=== PATIENT | male | born 1980 | race Caucasian/White ===

== ENCOUNTER 2021-03-26 15:49 | Outpatient (REF) | payer BC, SELFPAY ==
[2021-03-26 21:00] LABS: ALT 43 U/L (16-63); AST 24 U/L (15-37); Albumin 4.4 g/dL (3.4-5.0); Alkaline Phosphatase 70 U/L (46-116); Anion Gap 12.3 mmol/L (3-11); BUN 16 mg/dL (7-18); Bilirubin, Total 0.4 mg/dL (0.2-1.0); CO2 25.7 mmol/L (21.0-32.0); CREATININE 1.3 mg/dL (0.70-1.30); Calcium 9.6 mg/dL (8.5-10.1); Calculated LDL 178 mg/dL (<100); Chloride 100 mmol/L (98-107); Cholesterol 273 mg/dL (<200); Glucose 104 mg/dL (74-106); HDL Cholesterol 56 mg/dL (40-60); Potassium 3.9 mmol/L (3.5-5.1); Sodium 138 mmol/L (136-145); Total Protein 8.3 g/dL (6.4-8.2); Triglyceride 195 mg/dL (<150)
== END 2021-03-26 15:50 | disposition home or self-care (01) ==
LOC: LBN 15:49
PROVIDERS: Visit Provider Nurse Practitioner Family
DX: I10 Essential (primary) hypertension (principal); E78.5 Hyperlipidemia, unspecified; Z51.81 Encounter for therapeutic drug level monitoring
CPT/HCPCS: 80053; 80061

== ENCOUNTER 2023-01-08 09:03 | Observation (INO) | payer BC, SELFPAY ==
[2023-01-08] VITALS (23 sets, daily range): BP systolic 96–155; BP diastolic 60–94; PULSE 54–82; RESP 18–22; TEMP 35.8–37.8; O2SAT 95–100
--- NOTE | 2023-01-08 09:07 | ED.GENADUL_ITS ---
Discharge Plan Disposition Patient Disposition: Admit to [facility] Discharge Details Clinical Impression: Acute exacerbation of chronic low back pain Primary Care Provider: None,None ED Provider: Grey Torres Home Meds and New Rx's Prescriptions: New diazepam 5 mg tablet 5 mg PO QD-TID PRNQty: 7 0RF Continued metoprolol succinate 50 mg capsule,sprinkle,ER 24hr 50 mg PO DAILY atorvastatin 20 mg tablet 20 mg PO DAILY amlodipine 10 mg tablet 10 mg PO DAILY HPI General Date/Time Provider Initiated Documentation: 01/08/23 09:07 . HPI Narrative: MDM This is an uncomfortable but overall well appearing normothermic and not tachycardic 42-year-old male with acute on chronic back pain for which patient will receive diazepam given prehospital acetaminophen and ibuprofen. Patient has no saddle anesthesia to suggest cauda equina syndrome. He is not an IV drug user and denies any fevers and low suspicion for spinal epidural abscess is low. He has not lost control of his bowels nor bladder making cauda equina less likely. No recent spinal surgeries to suggest increased risk for spinal epidural hematoma. Furthermore patient is not anticoagulated. No history of malignancy so doubt pathological fracture. No trauma so patient is low risk for fracture. No rash to suggest zoster. No abdominal pain to suggest AAA. No pain out of proportion to suggest necrotizing soft tissue infection. Soft nontender abdomen so not concern for appendicitis or diverticulitis. No chest pain to suggest ACS. Bilateral feet warm and well-perfused so I am not concerned for critical limb ischemia. Patient has intact patellar reflexes and no lower extremity clonus I do not feel that he requires an emergent MRI as my suspicion for cord compression is exceedingly low. We will attempt treatment with 5 mg of diazepam intramuscularly and reassess. I have also ordered consultation from physical therapy. Patient reports no relief with Lidoderm patches so we will defer these at this point time. 10:51 AM Patient required 2 rounds of diazepam at 5 mg IV and then 5 mg IM. He also received 50 mg of IV ketorolac. His pain was improved. I have asked health equal opportunity officer Sheyla to have the patient seen next week by his primary care provider as he is asking for a referral to the spine clinic at [facility]. I have also ordered him a referral for physical therapy. 11:15 AM Patient feeling markedly improved. He reported diazepam worked better at times cyclobenzaprine so we will send him with a short course of diazepam. I went over return indications with the patient and told her explicitly that he should return if he lost control of his bowels or bladder or develop any saddle anesthesia or developed any fevers. Otherwise advised scheduled acetaminophen and ibuprofen. We will follow-up with the primary care provider next week. He did not want to work with physical therapy. 11:41 AM Patient was going to be discharged but he difficulty moving at the end of the bed. Will order 5 of additional diazepam IV. He reported that his pain had been down to a 5 out of 10. Now it is back up at a 7 out of 10. 1:07 PM Patient was feeling slightly improved wanted to try to be discharged. He requested crutches which I ordered. 1:38 PM Patient attempted to set up a second time. He was markedly uncomfortable. He reported worsening spasm. We will redose with an additional 50 mg of intravenous ketorolac and attempt treatment with 75 mcg of fentanyl. Given patient's refractory pain will reach out to hospitalist with request for hospitalization to best optimize the patient's pain management and hopefully have him work with physical therapy in the morning tomorrow. 2:25 PM I spoke with Dr. Lopes from the hospitalist service who agreed graciously to accept the patient for hospitalization, observation status. I ordered basic metabolic panel and a CBC. Met with the patient and he was feeling markedly improved. He agreed that it seemed most prudent for him to stay overnight to ensure that his multimodal pain regime was optimized and that he was not discharged prematurely given his relatively refractory symptoms in the emergency department for the past nearly 6 hours. His vitals remained reassuring in the ED. Chronic conditions affecting the care of the patient: Low back pain History obtained from an outside historian: Patient's External record review: No [facility] EMR records Medications: Diazepam Social determinants of health affecting disposition: N/A Management discussed with: N/A Treatment/interventions considered: Physical therapy but deferred based on patient preference Response to therapies provided: Improved pain following ketorolac and diazepam. HPI Patient reports that he has a history of an L5/S1 herniated disc and that this morning he bent down to put on his sock and felt a severe pain in his lower back. He has previously been dealing with similar symptoms over the past several years. 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 His symptoms often last 2 to 4 weeks. He attempted treatment at home with ibuprofen and in the past has used cyclobenzaprine. He also received 1 g of IV acetaminophen with paramedics. He denies any fevers any saddle anesthesia. He did have an isolated episode of emesis this morning. He has had no recent surgeries to his back. He denies chest and abdominal pain. He has no history of cancer and denies history of malignancy. He said no saddle anesthesia. He has had no pain radiating down his legs which is typical of his back pain. He drinks 1-2 beers per day denies history of withdrawal. No history of IV drug use nor tobacco use. No loss of bowel or bladder control. No falls. Exam General: Well-appearing in moderate distress speaking in complete sentences. Lying on back with legs propped up in stretcher. Head: Normocephalic, atraumatic. Eye: Extraocular eye movements intact. No conjunctival injection. No scleral icterus. Ear, nose, mouth, throat: Grossly normal inspection. Normal voice, handling secretions normally. Neck: Trachea midline. Cardiovascular: Well-perfused distal extremities. Respiratory: Nonlabored respiration. Clear lungs bilaterally Gastrointestinal: Nondistended abdomen. Soft nontender. Back: No rash to back. Mid line lumbar spinal tenderness with mild left-sided paraspinal muscle tenderness in the lumbar region. No step-offs. No deformities. No rash to back. Musculoskeletal: No edema. Moving all 4 extremities spontaneously. 2+ patellar reflexes. No lower extremity clonus. Bilateral feet warm well perfused with 5 out of 5 strength in dorsi and plantarflexion bilaterally. Skin: Normal for age and race, grossly normal temperature and turgor. No acute rash. Neurologic: Alert and appropriate, no apparent acute deficits. Psychiatric: Mood and manner are appropriate. Grooming and personal hygiene are appropriate. Related Data Home Medications Medication Instructions Recorded Confirmed amlodipine 10 mg tablet 10 mg PO DAILY 01/08/23 01/08/23 atorvastatin 20 mg tablet 20 mg PO DAILY 01/08/23 01/08/23 diazepam 5 mg tablet 5 mg PO QD-TID PRN #7 tabs 01/08/23 metoprolol succinate 50 mg capsule 50 mg PO DAILY 01/08/23 01/08/23 sprinkle, ext. release 24 hr Previous Rx's Medication Instructions Recorded diazepam 5 mg tablet 5 mg PO QD-TID PRN #7 tabs 01/08/23 Allergies Allergy/AdvReac Type Severity Reaction Status Date / Time No Known Allergies Allergy Unverified 01/08/23 09:01 General Stated Complaint: Nk/Back Pain ANG: 3 PFSH All Active Problems (Updated 01/08/23 @ 09:32 by Grey Torres MD) Acute exacerbation of chronic low back pain (Acute) Social History Smoking/Tobacco Use Status: Never Smoking risk assessment performed?: Yes Alcohol Intake: current Alcohol Intake frequency: a few times a month Alcohol type: beer Drug use: Never Substance use type: does not use Do you feel safe at home: Yes Do you feel safe in your relationship?: Yes Course Vital Signs Vital signs: Vital Signs Temperature 37.8 C H 01/08/23 08:57 Pulse 82 01/08/23 08:57 Respiratory Rate 22 01/08/23 08:57 Blood Pressure 114/72 01/08/23 08:57 Pulse Oximetry 100 01/08/23 08:57 Temperature 36.8 C 01/08/23 09:05 Temperature Source Oral 01/08/23 09:05 Pulse 82 01/08/23 08:57 Respiratory Rate 22 01/08/23 08:57 Blood Pressure 114/72 01/08/23 08:57 Pulse Oximetry 100 01/08/23 08:57 Oxygen Delivery Method Room Air 01/08/23 08:57 Oxygen Flow Rate 0 01/08/23 08:57 Pain Level 10 01/08/23 08:57
[2023-01-08] MEDS: diazePAM 10 MG/2 ML SYR 5 MG IM ×3 (09:31→23:37)
[2023-01-08] MEDS: Ketorolac 15 MG/ML VIAL IVP ×3 (10:34→20:12)
--- NOTE | 2023-01-08 10:55 | NUR.NOTE ---
Referral given to Care Managers to help Pt establish a Primary Care Provider to follow up with Low Back Pain.
[2023-01-08] MEDS: diazePAM 10 MG/2 ML SYR 5 MG IVP ×2 (11:51→12:39)
[2023-01-08] MEDS: fentaNYL 100 MCG/2 ML VIAL 75 MCG IM (13:47)
[2023-01-08 14:47] LABS: Source Nasal/Nares
[2023-01-08 14:50] LABS: Abs Immature Grans 0.03 10^3/uL (0.0-0.06); Absolute Basophil Count 0.04 10^3/uL (0.0-0.2); Absolute Eosinophil Count 0.19 10^3/uL (0.0-0.7); Absolute Lymphocyte Count 1.11 10^3/uL (1.2-3.4); Absolute Monocyte Count 0.53 10^3/uL (0.1-0.8); Absolute Neutrophil Count 4.41 10^3/uL (1.2-6.7); Basophils % 0.6; HCT 42.7 % (40.0-50.0); HGB 14.8 g/dL (13.5-17.5); Immature Grans % 0.5; Lymphocytes % 17.6; MCH 30.5 pg (27.0-33.0); MCHC 34.7 % (32.0-36.0); MCV 88 fL (80-95); MPV 9.1 fL (8.0-11.0); Monocytes % 8.4; Neutrophils % 69.9; Platelet Count 199 10^3/uL (130-400); RBC 4.86 10^6/uL (4.36-5.78); RDW 11.9 % (11.8-14.1); RDW-SD 38.6 fL; WBC 6.31 10^3/uL (4.4-10.8)
[2023-01-08 15:00] LABS: Anion Gap 7.9 mmol/L (3-11); BUN 11 mg/dL (7-18); CO2 22.1 mmol/L (21.0-32.0); CREATININE 0.9 mg/dL (0.70-1.30); Chloride 108 mmol/L (98-107); Estimated GFR 108.68 (mL/min/1.73m2); Glucose 101 mg/dL (74-106); Potassium 3.1 mmol/L (3.5-5.1); Sodium 138 mmol/L (136-145)
[2023-01-08 15:20] LABS: COVID-19 PCR Negative (Negative)
[2023-01-08] MEDS: oxyCODONE 5 mg/Acetaminophen 325 mg TAB 2 TAB PO ×2 (17:07→21:20)
--- NOTE | 2023-01-08 17:08 | PT.INNT ---
PT Notes Visit Reasons: Acute on Chronic Back Pain, Gait Instability Patient arrived to the med surg unit at 16:43 PM. PT evaluation to be done tomorrow morning, as ordered.
[2023-01-08] MEDS: Methocarbamol 750 MG TAB 1500 MG PO ×2 (17:40→20:12)
[2023-01-08] MEDS: Enoxaparin 40 MG/0.4 ML SYR SC (17:41)
--- NOTE | 2023-01-08 17:53 | W.PM.HP.N ---
Date of service: 01/08/23 Time of Service: 17:53 Assessment and Plan Assessment and plan (1) Acute exacerbation of chronic low back pain: Status: Acute Assessment and plan: probably d/t severe DDD of LS spine, pain control w/ muscle relaxants, narcotics and NSAID's and steroids. get MRI of LS spine in the morning. consult w/ P.T. Refer to spine center at [facility] as outpatient and referral locally to Dr. Mi for pain control. History of Present Illness History of Present Illness Chief Complaint: back pain Narrative: 42 yr old male w/ PMH of low back pain secondary to L4/L5 and L5/S1 ruptured discs evaluated in 2010 at [facility] which was medically treated. Since that time he has had occasional flare ups of his low back pain with intermittent radicular pains down his legs alternating leg w/ each episode. Lately he has had more frequent flare ups but today he was getting ready for work at [employer] and was dressing himself putting on his socks when he had sharp burning pain in his lower back but without radiation into his legs (whereas in past he has had burning pain down his thigh to his knees). He denies any bowel or bladder incontinence and no paresthesias or anesthesias of his legs or perineum or scrotum. Despite his intermittent flares he has had no repeat imaging since 2010. He has been to his PCP, Dr. Gonzalez, at [facility] and had been recently treated w/ a medrol dose pack. Patient was in so much pain that he could not walk and his had to dress hiim and call ambulance as he could not get into the car. In the ED he was evaluated and treated by Dr. Torres w/ multiple doses of valium, multiple doses of ketorolac and finally fentanyl. The E.D. provider asked for the hospitalist service to admit him for pain control as the patient could not ambulate off the guerney in the ED. Cormobidites include HTN and HLD, obesity. Review of Systems All systems reviewed & are unremarkable except as noted in HPI and below PFSH All Active Problems Acute exacerbation of chronic low back pain (Acute) Social History Smoking/Tobacco Use Status: Never Smoking risk assessment performed?: Yes Alcohol Intake: current Alcohol Intake frequency: a few times a month Alcohol type: beer Drug use: Never Substance use type: does not use Housing: house Do you feel safe at home: Yes Do you feel safe in your relationship?: Yes Meds Allergies and Home Medications Allergies Allergy/AdvReac Type Severity Reaction Status Date / Time No Known Allergies Allergy Unverified 01/08/23 14:52 Home Medications Medication Instructions Recorded Confirmed Type amlodipine 10 mg tablet 10 mg PO DAILY 01/08/23 01/08/23 History atorvastatin 20 mg tablet 20 mg PO DAILY 01/08/23 01/08/23 History diazepam 5 mg tablet 5 mg PO QD-TID PRN #7 tabs 01/08/23 Rx metoprolol succinate 50 mg capsule 50 mg PO DAILY 01/08/23 01/08/23 History sprinkle, ext. release 24 hr Exam Narrative Exam Narrative: Obese white male lyng in bed w/ his legs propped up on a wedge elevated higher than his chest w/ knees bent, he seems fairly comforatable at this time rating his pain about a 5 compared to when he came into the ED at which point his pain was the worst in his life. HEENT: urnremarkable, red hair, wears glasses, otherwise no remarkable features, Neck: supple, nontender, normal pulses Lungs: clear Heart: RRR, no m,r,g Abdomen: obese, soft, nontender, normal bowel sounds Legs: no edema, or cyanosis, normal pulses MSK/neuro: pain bilaterally w/ SLR, brisk bilateral patellar reflexes, sensation intact over both legs to light touch and two point discrimination, normal motor strength in both feet dorsiflexion, plantar flexion and normal hip flexion and extension although doing so did elicit francie in his lower back Results Labs 01/08/23 14:37 01/08/23 14:37 Labs: Laboratory Results - last 24 hr 01/08/23 14:37 WBC 6.31 RBC 4.86 Hgb 14.8 Hct 42.7 MCV 88 MCH 30.5 MCHC 34.7 RDW 11.9 Plt Count 199 MPV 9.1 Immature Gran % 0.5 Neutrophils % 69.9 Lymphocytes % 17.6 Monocytes % 8.4 Eosinophils % 3.0 Basophils % 0.6 Nucleated RBC % 0.0 Absolute Neutrophils 4.41 Absolute Lymphocytes 1.11 L Absolute Monocytes 0.53 Absolute Eosinophils 0.19 Absolute Basophils 0.04 Sodium 138 Potassium 3.1 L Chloride 108 H Carbon Dioxide 22.1 Anion Gap 7.9 BUN 11 Creatinine 0.9 Est GFR (CKD-EPI 2020) 108.68 Glucose 101 Calcium 8.0 L COVID-19 Source Nasal/Nares SARS-CoV-2 (PCR) Negative Last Vital Signs Temp 35.8 C L 01/08/23 16:51 Pulse 62 01/08/23 16:51 Resp 19 01/08/23 16:51 BP 148/94 H 01/08/23 16:51 Pulse Ox 99 01/08/23 16:51 Time Spent Time spent with Patient: >75 minutes Time was spent: preparing to see the patient(eg.review tests), obtaining and/or reviewing separately otained hiistory, ordering medications,tests, procedures, referring, communicating with other health career technical education teacher, indepentently interpreting results, counseling the patient and care coordination
[2023-01-08] MEDS: Dexamethasone 4 MG/ML VIAL IVP (18:55)
[2023-01-08] MEDS: Acetaminophen 325 MG TAB 650 MG PO (20:12)
[2023-01-08] MEDS: Normal Saline Flush 10 ML SYR IVP (20:15)
[2023-01-09] MEDS: oxyCODONE 5 mg/Acetaminophen 325 mg TAB 2 TAB PO ×3 (01:21→13:07)
[2023-01-09] MEDS: Ketorolac 15 MG/ML VIAL IVP ×3 (01:22→16:01)
--- NOTE | 2023-01-09 05:00 | RESPIRATORY ---
CPAP Device: Pt's own Dreamstation 10 DME: Carmela Settings: CPAP 12.6 Mask: Nasal Mask Pt states that his last sleep study was around 10 years ago and he is in the process of scheduling a new sleep study. Pt machine checked for hospital use and water chamber filled.
[2023-01-09 07:33] VITALS: BP 131/82; PULSE 68; RESP 18; TEMP 35; O2SAT 95
[2023-01-09] MEDS: Docusate Sodium 100 MG CAP PO ×3 (07:55→19:45)
[2023-01-09] MEDS: Acetaminophen 325 MG TAB 650 MG PO (07:55)
[2023-01-09] MEDS: Atorvastatin 20 MG TAB PO (07:57)
[2023-01-09] MEDS: Methocarbamol 750 MG TAB 1500 MG PO ×2 (07:57→13:13)
[2023-01-09] MEDS: amLODIPine 10 MG TAB PO (07:57)
[2023-01-09] MEDS: Metoprolol CR 50 MG TABCR PO (07:58)
[2023-01-09] MEDS: Normal Saline Flush 10 ML SYR IVP ×2 (08:03→16:02)
[2023-01-09] MEDS: diazePAM 5 MG TAB PO ×2 (09:20→16:00)
[2023-01-09] MEDS: Gabapentin 100 MG CAP PO ×3 (09:21→19:45)
[2023-01-09] MEDS: HYDROmorphone 2 MG/ML SYR IVP ×2 (09:41→16:01)
--- NOTE | 2023-01-09 10:45 | DI.MRI_ITS ---
Exam(s) MR LUMBAR SPINE WO EXAM: MR LUMBAR SPINE WO CLINICAL HISTORY: acute on chronic back pain; hx of L4-L5 and L5-S1. TECHNIQUE: Multiplanar multisequence MRI of the Lumbar spine was performed. COMPARISON: No exams were available for comparison FINDINGS: Bones: The last intervertebral disc space is designated the L5/S1 level for the numbering purpose of this ex amination. The vertebral body heights are well maintained. Alignment: Unremarkable. degenerative signal changes in the L4-5 endplates, eccentric toward the left. The marrow signal tesha racteristics are otherwise unremarkable. Cord: The conus tip ends at the T12 level. It is of normal size and signal intensity. There is a an above average quantity epidural fat within the central canal. T12-L1: No focal disc herniation is present. No central spinal canal stenosis.No neural foraminal st enosis. L1-2: No focal disc herniation is present. No central spinal canal stenosis.No neural foraminal sten osis. L2-3: No focal disc herniation is present. No central spinal canal stenosis.No neural foraminal dudley nosis. L3-4: Disc height is normal. Small central disc protrusion eccentric toward the right. Facet degene rative changes and ligamentous hypertrophy contribute to mild central canal stenosis. No neural fora juan manuel stenosis. L4-5:Mild broad-based disc bulging and endplate osteophytes eccentric toward the left. no focal disc herniation is present. Mild facet degenerative changes and ligamentous hypertrophy. Mild central c anal stenosis. No neural foraminal stenosis. L5-S1: No focal disc herniation is present. No central spinal canal stenosis.No neural foraminal st enosis. The visualized SI joints and sacrum are well maintained. Soft tissues: The paraspinal soft tissues are unremarkable. IMPRESSION: Small disc protrusion L3-4. Mild central canal stenosis. Mild disc bulging L4-5. Mild central canal stenosis. No neural foraminal narrowing. DATA REPOSITORY:
[2023-01-09 12:04] LABS: Anion Gap 11.5 mmol/L (3-11); BUN 12 mg/dL (7-18); CO2 22.5 mmol/L (21.0-32.0); CREATININE 1.1 mg/dL (0.70-1.30); Calcium 9.5 mg/dL (8.5-10.1); Chloride 101 mmol/L (98-107); Estimated GFR 85.42 (mL/min/1.73m2); Glucose 144 mg/dL (74-106); Magnesium 2.3 mg/dL (1.8-2.4); Potassium 3.5 mmol/L (3.5-5.1); Sodium 135 mmol/L (136-145)
[2023-01-09 14:58] VITALS: BP 127/73; PULSE 66; RESP 16; TEMP 36.8; O2SAT 96
--- NOTE | 2023-01-09 15:52 | INITIAL_ITS ---
Date of service: 01/09/23 Time of Service: 15:52 Care Management Initial Assmt Initial Assessment REASON FOR HOSPITALIZATION:: back pain PREVIOUS FUNCTIONAL STATUS/SOCIAL/FAMILY SUPPORTS:: Duke, who prefers to be called Doron, lives in [place] with his Oksana and 8 year old son. 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 Doron is independent at baseline and does not receive any community services. CURRENT FUNCTIONAL STATUS:: Doron was lying in bed with his legs propped up with pillows under his knees when CM met with him. His was present as well. He informed CM that, in that position with medication, his pain level was a 4-5. With activity, it increases to a 9 or 10, requiring IV opioids. Doron does not anticipate needing any services at discharge. ADVANCE DIRECTIVES:: none Has patient been provided with info about the portal/API?: Yes Did the patient sign up for the portal?: No CODE STATUS:: Full Code INSURANCE COVERAGE / FINANCIAL ISSUES:: [employer] CURRENT HOME/COMMUNITY SERVICES/EQUIPMENT:: none PRIMARY CARE PHYSICIAN:: does not have . Edwin Denis was T-doc day of admission POTENTIAL DISCHARGE NEEDS:: establish with a PCP PATIENT/FAMILY EDUCATION NEEDS:: Review discharge instructions, follow up plan, limitations, discuss Ask Me Three TRANSPORTATION:: via private vehicle with PLAN:: Anticipate Doron will discharge home with no new services. He will follow up with his PCP and plan of care and transport with family. PFSH All Active Problems Acute exacerbation of chronic low back pain (Acute) Social History Smoking/Tobacco Use Status: Never Smoking risk assessment performed?: Yes Alcohol Intake: current Alcohol Intake frequency: a few times a month Alcohol type: beer Drug use: Never Substance use type: does not use Housing: house Do you feel safe at home: Yes Do you feel safe in your relationship?: Yes
--- NOTE | 2023-01-09 16:06 | PGE_ITS ---
Date of Service Date of service: 01/09/23 Time of Service: 16:07 Assessment and Plan Assessment and plan (1) Acute exacerbation of chronic low back pain: Status: Acute Assessment and plan: LS spine pain, patient unable to walk more than one foot with walker and PT assist without 10/10 pain Pain control w/ muscle relaxants, narcotics, NSAID's, ketorolac and steroids. Lido patch, aqua pack Patient requests ibuprofen and flexaril instead of methocarbamol - changes made; ketorolac instead of ibu MRI of LS spine : Small disc protrusion L3-4. Mild central canal stenosis. Mild disc bulging L4-5. Mild central canal stenosis. No neural foraminal narrowing. P.T. - patient unable to participate today, unable to walk with PT and walker more than 1 foot without 10/10 pain Consult [facility] Sp[place] pending Refer to spine center at [facility] as outpatient and referral locally to Dr. Mi for pain control. Subjective Subjective Patient reports: still having pain, tolerating liquids well, tolerating a regular diet, voiding w/o difficulty, bowel movement and afebrile; denies flatus, diarrhea, nausea, vomiting or shortness of breath Interval history since last seen: Patient is supine in bed with legs bent at the knee and lower extremities elevated on a wedge. Patient continues to have 10/10 pain with any movement. He reports he is unable to walk even with walker. He also states he would like to go home and back to work Thursday. Exam Narrative Exam Narrative: Obese white male lyng in bed w/ his legs propped up on a wedge elevated higher than his chest w/ knees bent, he seems fairly comforatable at this time rating his pain about a 5 compared to when he came into the ED at which point his pain was the worst in his life. HEENT: urnremarkable, red hair, wears glasses, otherwise no remarkable features, Neck: supple, nontender, normal pulses Lungs: clear Heart: RRR, no m,r,g Abdomen: obese, soft, nontender, normal bowel sounds Legs: no edema, or cyanosis, normal pulses MSK/neuro: pain bilaterally w/ SLR, brisk bilateral patellar reflexes, sensation intact over both legs to light touch and two point discrimination, normal motor strength in both feet dorsiflexion, plantar flexion and normal hip flexion and extension although doing so did elicit francie in his lower back Objective Last Vital Signs Temp 36.8 C 01/09/23 14:58 Pulse 66 01/09/23 14:58 Resp 16 01/09/23 14:58 BP 127/73 01/09/23 14:58 Pulse Ox 96 01/09/23 14:58 Laboratory Results - last 24 hr 01/09/23 11:30 Sodium 135 L Potassium 3.5 Chloride 101 Carbon Dioxide 22.5 Anion Gap 11.5 H BUN 12 Creatinine 1.1 Est GFR (CKD-EPI 2020) 85.42 Glucose 144 H Calcium 9.5 Magnesium 2.3 Time Spent with Patient Time Spent with Patient: >50 minutes Time was spent: preparing to see the patient(eg.review tests), ordering medications,tests, procedures, referring, communicating with other health health care aide, indepentently interpreting results, counseling the patient and care coordination
--- NOTE | 2023-01-09 16:12 | IN_ITS ---
PT Notes Visit Reasons: Acute on Chronic Back Pain, Gait Instability Physical Therapy Inpatient Initial Evaluation Date: 01/09/2023 Referring Doctor: Travon Dumont MD PT Orders: PT CONSULT: Safety Consult for MD Precautions: Fall. Standard. Activity as tolerated. Patient Profile/Admitting Diagnosis: Patient admitted on 01/08/2023 for acute exacerbation of chronic low back pain. Today's MRI read: L3-4: Disc height is normal. Small central disc protrusion eccentric toward the right. Facet degenerative changes and ligamentous hypertrophy contribute to mild central canal stenosis. No neural foraminal stenosis. L4-5:Mild broad-based disc bulging and endplate osteophytes eccentric toward the left. no focal disc herniation is present. Mild facet degenerative changes and ligamentous hypertrophy. Mild central canal stenosis. No neural foraminal stenosis. L5-S1: No focal disc herniation is present. No central spinal canal stenosis. No neural foraminal stenosis. PMHX: Lumbar radiculopathy Social History/Home Situation: Lives with in a private home. Independent with all aspects of ADLs prior to surgery. 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 Equipment Owned/DME: Bilateral axillary crutches Subjective: Patient reports pain in low back at 3/10 at rest that worsened to 9-10/10 while attempting a short distance/in-room ambulation with FWW and using a back brace. Does not like the mattress he is on right now as it is too soft for him. Adds t hat at home, he gets better relief of his back pain lying down on the stiff floor. Indicated that his pain was exacerbated by putting on a sock while preparing to go to work yesterday. Objective: General Observation: In mild distress. Anxious about moving. present in room. Mental Status: Alert and oriented as to person, place, time, and purpose. Able to pay attention, focus, and respond appropriately. Pain: As above Vital Signs: Closely monitored by nursing staff ROM: Lumbar ROM: Unable to test due to ongoing high level of irritation in the back Right Upper Extremity: Grossly WFL Left Upper Extremity: Grossly WFL Right Lower Extremity: Grossly WFL Left Lower Extremity: Grossly WFL Strength: Lumbar spine strength: Unable to test due to ongoing high level of irritation in the back Right Upper Extremity: Grossly 5/5 Left Upper Extremity: Grossly 5/5 Right Lower Extremity: Grossly 5/5 Left Lower Extremity: Grossly 5/5 Bed Mobility/Transfers: Rolling to R/L stand by assist, uses both hands for support R-side lying to sit with contact guard assist, needs use of B hands for support Sit to R side-lying with minimal assist, needs use of B hands for support Stand to sit contact guard assist, needs B UE for support due to pain level Stand to sit contact guard assist, needs B UE for support due to pain level Gait: Tolerated 6 steps and needed to turn around due to pain exacerbation to 9-10/10 despite use of back brace and FWW. Patient became mildly unsteady and was advised to turn around and slowly walk back to the bed to avoid balance loss from worsening pain level. Balance: Static Sitting: Good Dynamic Sitting: Fair Static Standing: Fair Dynamic Standing: Fair Special Tests: Mobility Limitations Standardized Measure [facility] 6 clicks Basic Mobility Inpatient Short Form: Raw Score: 11 CMS Score: 73% deficit Lasegue's Test: Positive on B sides Slump Test: Positive Informed Consent/Education: Patient was instructed in purpose of PT consult and plan of care. Agreeable to proceed with established PT POC to achieve personal goals. ASSESSMENT: L3-L4 and L4-L5 radiculopathy limited today's mobility assessment. Lumbar spine currently highly irritable as movement/mobility performance continues to exacerbate pain level up to 9-10/10. Patient was seen 2.5 hours after intake of Tulenol and Oxycodone. Patient remains at risk for falls even with use of FWW and brace at this time and was advised that PT will make sure to work within half an hour of pain pill intake to truly test efficacy of pain management and to allow for structure-specific extension-biased lumbar exercises to stabilize trunk. Patient presents with clinical signs and symptoms consistent with current/admitting diagnoses that have resulted to mobility limitations, gait instability, generalized weakness, and overall ADL decline as demonstrated by the following impairment level findings: 1. Decreased strength to trunk musculature 2. Impaired sitting/standing balance 3. Impaired activity tolerance 4. Limitation of joint range of motion in lumbar spine 5. Pain with movement at 9-10/10 Impairments are contributing to the following functional limitations: 1. Decline in bed mobility skills 2. Decline in transfer skills 3. Difficulty with ambulation without assistive device and physical assistance 4. Increased completion time for mobility ADL performance 5. Increased risk for falls 6. Difficulty with managing steps alone safely Patient is assessed as a 96314 moderate complexity based on the following: History: 42-year-old male with past medical history as indicated above Examination: Demonstrable impairment in strength, balance, and mobility level with underlying impairments and functional limitations as exhibited above as well as deficit score of 73% utilizing the [facility] Mobility Inpatient Short Form Presentation: Evolving Decision Makin moderate complexity Goals: Goals X1 week 1. Supine-Sit independent 2. Sit-Supine independent 3. Sit-Stand independent 4. Stand-Sit independent with FWW 5. Bed-Chair independent with FWW 6. Chair-Bed independent with FWW 7. Independent gait on level surface with use of FWW for at least 150 feet without report of pain nor dyspnea 8. Independent stair negotiation while holding onto B rails for at least 4 steps without report of pain nor dyspnea 9. Independent with home exercise program 10. Good static and dynamic standing balance/tolerance Plan of Care/Treatment Plan: 1-2x/day, 7 days/week x 1 week. Plan of care has been reviewed with the [employer] providing the service under Physical Therapy direction. Initiate Physical Therapy intervention for pain management as needed, strengthening, bed mobility, transfers, gait, stairs, balance training, and use of assistive device. -Coordinate with nurse about premedicating patient for pain. -Initiate extension biased exercises as tolerated within half an hour of pain pill intake: supine anterior pelvic tilting, supine bridge, sitting at edge of bed extension, standing extension, wall sits DISCHARGE RECOMMENDATIONS: [] Home with no services [] [] Home with services [specify] [X] Home with outpatient PT. Continue with outpatient PT for core strengthening/stabilization, functional mobility progression, and pain management [] SNF for continued rehabilitation [] [] [facility]ide [facility] [] [] SNF versus LTC based on ability to participate and progress [] TREATMENT CODE/TIME: 02033 x 20 minutes , 31655 x 26 minutes beginning at 15:17 PM. Thank you for the opportunity to participate in the care of this patient. Angelita Weaver PT, DPT, CLT [facility] [place], [place]
--- NOTE | 2023-01-09 16:37 | CHAPLAIN ---
Doron was up in the chair when I visited, talking on his phone. He thanked me for visiting, and said that he has a good support system. He was expecting his to be in to visit soon. I explained my role and offered support.
[2023-01-09] MEDS: traMADol 50 MG TAB 100 MG PO ×2 (17:17→23:00)
[2023-01-09] MEDS: Enoxaparin 40 MG/0.4 ML SYR SC (17:18)
[2023-01-09] MEDS: Lidocaine 5% Patch 2 PATCH TP (17:18)
[2023-01-09] MEDS: Polyethylene Glycol 3350 17 GM PACKET PO (19:45)
[2023-01-09] MEDS: Cyclobenzaprine 10 MG TAB PO (19:45)
[2023-01-09 23:24] VITALS: BP 118/70; PULSE 61; RESP 18; TEMP 36.6; O2SAT 95
[2023-01-10] MEDS: traMADol 50 MG TAB 100 MG PO ×2 (06:03→12:03)
[2023-01-10] MEDS: LORazepam 1 MG TAB PO (06:04)
[2023-01-10] MEDS: Ketorolac 10 MG TAB PO ×2 (06:04→13:03)
[2023-01-10] MEDS: Lidocaine Patch Removal 2 EACH TP (06:24)
[2023-01-10 07:34] LABS: Abs Immature Grans 0.07 10^3/uL (0.0-0.06); Absolute Basophil Count 0.02 10^3/uL (0.0-0.2); Absolute Eosinophil Count 0.01 10^3/uL (0.0-0.7); Absolute Lymphocyte Count 1.11 10^3/uL (1.2-3.4); Absolute Monocyte Count 0.71 10^3/uL (0.1-0.8); Absolute Neutrophil Count 8.79 10^3/uL (1.2-6.7); Basophils % 0.2; Eosinophils % 0.1; HCT 41.9 % (40.0-50.0); HGB 14.6 g/dL (13.5-17.5); Immature Grans % 0.7; Lymphocytes % 10.4; MCH 30.7 pg (27.0-33.0); MCHC 34.8 % (32.0-36.0); MCV 88 fL (80-95); MPV 9.7 fL (8.0-11.0); Monocytes % 6.6; Platelet Count 238 10^3/uL (130-400); RBC 4.75 10^6/uL (4.36-5.78); RDW-SD 38.7 fL; WBC 10.71 10^3/uL (4.4-10.8)
[2023-01-10 07:49] LABS: Anion Gap 12.4 mmol/L (3-11); BUN 14 mg/dL (7-18); CO2 23.6 mmol/L (21.0-32.0); CREATININE 1.1 mg/dL (0.70-1.30); Calcium 9.2 mg/dL (8.5-10.1); Chloride 102 mmol/L (98-107); Estimated GFR 85.42 (mL/min/1.73m2); Glucose 132 mg/dL (74-106); Magnesium 2.3 mg/dL (1.8-2.4); Potassium 3.6 mmol/L (3.5-5.1); Sodium 138 mmol/L (136-145)
[2023-01-10] MEDS: Gabapentin 100 MG CAP PO ×2 (08:44→13:02)
[2023-01-10] MEDS: Polyethylene Glycol 3350 17 GM PACKET PO (08:44)
[2023-01-10] MEDS: Docusate Sodium 100 MG CAP PO ×2 (08:44→13:03)
[2023-01-10] MEDS: Cyclobenzaprine 10 MG TAB PO ×2 (08:44→13:02)
[2023-01-10] MEDS: Metoprolol CR 50 MG TABCR PO (08:44)
[2023-01-10] MEDS: amLODIPine 10 MG TAB PO (08:44)
[2023-01-10] MEDS: Atorvastatin 20 MG TAB PO (08:44)
[2023-01-10 09:01] VITALS: BP 122/80; PULSE 52; RESP 16; TEMP 35.9; O2SAT 94
--- NOTE | 2023-01-10 09:42 | PT.INTREAT ---
PT Notes Visit Reasons: Acute on Chronic Back Pain, Gait Instability Inpatient Physical Therapy Treatment Note [facility] Date: 01/10/23 PRECAUTIONS:[] SUBJECTIVE: Pt reports that he is seeing some improvement since yesterday. He would really like to leave today andn go home. OBJECTIVE: ? PAIN: 05/23 Therapeutic Activities (25128k[1]): Direct one-on-one instruction in dynamic activities to improve functional performance. ? BED MOBILITY/TRANSFERS? Sit-supine: SBA ? Sit-stand: SBA? Stand-sit: SBA ? Provided skilled cues and instruction on performance and technique throughout. Gait Training (55495k[]): Direct one-on-one instruction and skilled instruction in: ? GAIT? Assistive Device: Started without AD then went to FWW with SBA of approx 75ft ? Weight bearing: Full Assist: SBA ? Distance:? Approx 75ft ? STAIRS:[] ? Therapeutic Exercises (17499y[1]): Direct one-on-one instruction in therapeutic exercises to develop strength, endurance, range of motion and flexibility. ? Exercises ? Seated back ext 5x5 sec Standing back ext 5x5 sec PPT 5x5 sec PPT with BKF 5x B Reviewed log rolling techniques for in and OOB Provided skilled instruction in proper exercise performance Provided skilled manual cues to facilitate proper muscle recruitment and/or form: ASSESSMENT:? Pt tolerated today's session fairly well. Very motivated to leave today. PLAN: Cont as per PT POC. TREATMENT CODE/TIME: 9:10-9:40 (30) TA TP
[2023-01-10] MEDS: oxyCODONE 5 MG TAB PO ×2 (09:54→13:02)
--- NOTE | 2023-01-10 10:04 | RESPIRATORY ---
RT Chioma Diaz told RT (Anabela Lamb) that patient had questions concerning this device. RT spoke with patient and hes having issues with seal in H2O chamber not sealing properly. RT informed patient DME's do not usually replace these and he might be able to find one on [facility] or [facility] under H2O chamber machine seal. Patient uses an [id number] Auto Set with an Airfit N20 nasal mask size large, no O2 bled in and the DME is [facility].
--- NOTE | 2023-01-10 11:58 | DSE_ITS ---
Date of service: 01/10/23 Time of Service: 13:00 DS: Diagnosis Discharge Diagnosis (1) Acute exacerbation of chronic low back pain: Status: Acute Discharge Plan Disposition Patient Disposition: Home Condition: Improving Discharge Details Reason For Visit: Acute on Chronic Back Pain, Gait Instability Admit Date/Time: 01/08/23 14:27 Admit Provider: Travon Dumont Attending Provider: Travon Dumont Primary Care Provider: None,None Hospital Course Hospital Course: This is a 42 yr old male w/ PMH of hypertension, hyperlipidemia and low back pain secondary to L4/L5 and L5/S1 ruptured discs evaluated in 2010 at [facility] which was medically treated. Since that time he has had occasional flare ups of his low back pain with intermittent radicular pains down his legs alternating leg w/ each episode. Lately he has had more frequent flare ups. He was putting on his socks on day of admission and had horrible burning pain in his low back and he could not walk secondary to that pain. He reported it as the worse pain he's ever had. He denied any bowel or bladder incontinence and no paresthesias or anesthesias of his legs or perineum or scrotum. Despite his intermittent flares he has had no repeat imaging since 2010. He has been to his PCP, Dr. Gonzalez, at [facility] and had been recently treated w/ a medrol dose pack. Patient's had to dress him, she called 911. He was brought to the [facility] ED and was evaluated and treated by Dr. Torres w/ multiple doses of valium, multiple doses of ketorolac and fentanyl. He was placed on observation status on the medical floor for pain control. He was given lorazepam, gabapentin, ketorolac, tramadol, a medrol dose pack and oxycone with good reli ef. He was seen by PT today and was able to walk with pain controlled. He was given a referral to [facility] and [facility] Pain clinic (in case they can get him in sooner). He was also given a referral to PT. He was discharged to home with a pain plan and should follow up with PCP. He was told not to drive or use machinery. He is in agreement with discharge plan. His will be with him at home. Home Meds and New Rx's Prescriptions: New cyclobenzaprine 10 mg Tablet 10 mg PO TID Qty: 30 0RF ketorolac 10 mg Tablet 10 mg PO Q6H PRN PRNQty: 30 0RF Rx Instructions: for mild - moderate pain gabapentin 100 mg Capsule 100 mg PO TID Qty: 30 0RF lorazepam 1 mg Tablet 1 mg PO QID PRN PRNQty: 30 0RF tramadol 50 mg Tablet 100 mg PO Q6H Qty: 30 0RF Rx Instructions: for moderate pain oxycodone 5 mg Tablet 5 mg PO Q4H PRN PRNQty: 20 0RF Rx Instructions: for severe pain Continued metoprolol succinate 50 mg capsule,sprinkle,ER 24hr 50 mg PO DAILY atorvastatin 20 mg tablet 20 mg PO DAILY amlodipine 10 mg tablet 10 mg PO DAILY Discharge Instructions Instructions: Low Back Strain (ED) Additional Instructions: Your primary care has been requested to follow-up with you early next week. A referral to the [place] and pain center at [facility] [place] been [place]. Please return to the emergency department if you develop any loss of control of your bowels or bladder if you develop any numbness or tingling between your legs or if you develop any fevers. For your pain please take medications as follows: 1. Ketoroloac for minor-moderate pain - anti-inflammatory 2. Tramadol for moderate pain - non narcotic pain reliever 3. Oxycodone for severe pain - narcotic pain reliever Cyclobenzaprine is a muscle relaxer - sedating - do not take together Lorazepam is a musce relaxer - sedating - do not take together Please do not drive drink alcohol or operate any heavy machinery after taking these stronger medications. Stand Alone Forms: Nursing Discharge Form Referrals: Jeremie Gonzalez MD [ NON-[facility] STAFF PHYSICIAN] - (Please call Thursday to make a follow up for 1-2 weeks Follow up post hospitalization for acute on chronic back pain. Referral sent to [facility]. ) Thony Price [ NON-[facility] STAFF PHYSICIAN] - (A referral has been sent to [facility]; they will contact you. ) Karson Pascual, PT [PHYSICAL THERAPIST] - (Acute on chronic back pain please call Thursday to make an appointment for 1-2 weeks) Activity:: Activity as Tolerated Equipment/Supplies:: No Equipment Needed Diet:: As Tolerated Discharge Orders Discharge Orders: Discharge Order (Routine); Ordered 01/10/23 Ordered By: Jessica Lane Discharge Data Discharge Date/Time-TO BE ENTERED AT DEPARTURE: 01/10/23 14:14 DS: Summary Time Spent with Patient providing and/or coordinating discharge services: Greater than 30 minutes Status at Discharge Functional status at discharge: independent ambulation Overall status at discharge: patient is progressing back to baseline Mental Status: mental status grossly normal Speech and Movement: speech and movement normal Mood: congruent mood Affect: normal affect Exam Narrative Exam Narrative: Obese white male, again lyng in bed w/ his legs propped up on a wedge elevated higher than his chest w/ knees bent, he seems fairly comfortable at this time rating his pain about a 3. HEENT: urnremarkable Neck: supple, nontender, normal pulses Lungs: clear Heart: RRR, no m,r,g Abdomen: obese, soft, nontender, normal bowel sounds Legs: no edema, or cyanosis, normal pulses MSK/neuro: continues to have pain in lower back, no parastesias, moves all ext well, ambulatory down mathis with a lot less pain, tolerating being ambulatory Psych Mental Status: mental status grossly normal Speech and Movement: speech and movement normal Mood: congruent mood Affect: normal affect DS: Data Vitals/I&O Vitals and I&O: Vital Signs Temperature 35.9 C L 01/10/23 09:01 Temperature Source Tympanic 01/10/23 09:01 Pulse 52 L 01/10/23 09:01 Pulse Rhythm Regular 01/10/23 09:00 Respiratory Rate 16 01/10/23 09:01 Respiratory Effort Normal, Non-Labored 01/10/23 09:00 Respiratory Depth Normal 01/10/23 09:00 Respiratory Pattern Normal 01/10/23 09:00 Blood Pressure 122/80 01/10/23 09:01 Blood Pressure Mean 98 01/08/23 13:01 Pulse Oximetry 94 01/10/23 09:01 Oxygen Delivery Method Room Air 01/10/23 09:01 Oxygen Flow Rate 0 01/10/23 09:01 Fraction of Inspired Oxygen (FIO2) 21 01/10/23 10:02 Pain Level 7 01/10/23 09:54 Comment vitals taken at admission 01/08/23 16:51 Intake & Output 01/09/23 01/09/23 01/10/23 11:59 23:59 11:59 Output Total 300 / 300 Balance -300 / -300 Output: Urine 300 / 300 Other: Urine Color Light Kerri Yellow Urine Appearance Clear Urine Odor Strong Comment voided in toilet Voiding Methods Urinal Toilet Data Completed and Pending Labs on day of discharge: Labs from last 24 hours 01/10/23 01/09/23 06:50 11:30 WBC 10.71 RBC 4.75 Hgb 14.6 Hct 41.9 MCV 88 MCH 30.7 MCHC 34.8 RDW 12.0 Plt Count 238 MPV 9.7 Immature Gran % 0.7 Neutrophils % 82.0 Lymphocytes % 10.4 Monocytes % 6.6 Eosinophils % 0.1 Basophils % 0.2 Nucleated RBC % 0.0 Absolute Neutrophils 8.79 H Absolute Lymphocytes 1.11 L Absolute Monocytes 0.71 Absolute Eosinophils 0.01 Absolute Basophils 0.02 Sodium 138 135 L Potassium 3.6 3.5 Chloride 102 101 Carbon Dioxide 23.6 22.5 Anion Gap 12.4 H 11.5 H BUN 14 12 Creatinine 1.1 1.1 Est GFR (CKD-EPI 2020) 85.42 85.42 Glucose 132 H 144 H Calcium 9.2 9.5 Magnesium 2.3 2.3 PFSH All Active Problems Acute exacerbation of chronic low back pain (Acute) Social History Smoking/Tobacco Use Status: Never Smoking risk assessment performed?: Yes Alcohol Intake: current Alcohol Intake frequency: a few times a month Alcohol type: beer Drug use: Never Substance use type: does not use Housing: house Do you feel safe at home: Yes Do you feel safe in your relationship?: Yes Time Spent with Patient Time Spent with Patient: 45-69 minutes Time was spent: preparing to see the patient(eg.review tests), ordering medications,tests, procedures, referring, communicating with other health care transitions manager, indepentently interpreting results, counseling the patient and care coordination
--- NOTE | 2023-01-10 15:24 | CMDISCH_ITS ---
Date of service: 01/10/23 Time of Service: 15:25 LACE Index Scoring Tool Questions: Length of Stay (in days): 2 Was the patient admitted via the E.D.?: Yes E.D. Visits: 0 Answers: Total Score: 5 Risk of Readmission: Low Risk Care Management Discharge Plan Reason for Hospitalization: back pain Discharge Plan: Doron is discharged home with no services. He will follow up with his PCP, [facility], and plan of care as instructed. He is transpo rted home by his via private vehicle. Patient/Family Education Needs: Review of discharge instructions including medications, limitations and plan of care; discuss Ask Me Three and self management.
--- NOTE | 2023-01-12 17:00 | PT.INDS ---
PT Notes Visit Reasons: Acute on Chronic Back Pain, Gait Instability Physical Therapy Inpatient Discharge Summary Date: 01/12/2023 Dates of service: 01/09/2023 through 01/10/2023 This is a clinical summary of care provided for the duration of dates listed above. No charge was made in the completion of this documentation. Referring Doctor: Travon Dumont MD PT Orders: PT CONSULT: Safety Consult for MD Precautions: Fall. Standard. Activity as tolerated. Patient Profile/Admitting Diagnosis: Patient admitted on 01/08/2023 for acute exacerbation of chronic low back pain. Cleared by hospitalist to return home with recommendation of continued outpatient PT services in order to address ongoing symptoms exacerbation and facilitate return to independent ADLs and occasional activities. Today's MRI read: L3-4: Disc height is normal. Small central disc protrusion eccentric toward the right. Facet degenerative changes and ligamentous hypertrophy contribute to mild central canal stenosis. No neural foraminal stenosis. L4-5:Mild broad-based disc bulging and endplate osteophytes eccentric toward the left. no focal disc herniation is present. Mild facet degenerative changes and ligamentous hypertrophy. Mild central canal stenosis. No neural foraminal stenosis. L5-S1: No focal disc herniation is present. No central spinal canal stenosis. No neural foraminal stenosis. PMHX: Lumbar radiculopathy Social History/Home Situation: Lives with in a private home. Independent with all aspects of ADLs prior to surgery. 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 Equipment Owned/DME: Bilateral axillary crutches Subjective: NT. See most recent [employer] notes. Objective: General Observation: NT. See most recent [employer] notes. Mental Status: NT. See most recent [employer] notes. Pain: NT. See most recent [employer] notes. Vital Signs: NT. See most recent [employer] notes. ROM: Lumbar ROM: Unable to test due to ongoing high level of irritation in the back Right Upper Extremity: Grossly WFL Left Upper Extremity: Grossly WFL Right Lower Extremity: Grossly WFL Left Lower Extremity: Grossly WFL Strength: Lumbar spine strength: Unable to test due to ongoing high level of irritation in the back Right Upper Extremity: Grossly 5/5 Left Upper Extremity: Grossly 5/5 Right Lower Extremity: Grossly 5/5 Left Lower Extremity: Grossly 5/5 Bed Mobility/Transfers: Rolling to R/L stand by assist, uses both hands for support R-side lying to sit with stand by assist, needs use of B hands for support Sit to R side-lying with stand by assist, needs use of B hands for support Stand to sit stand by assist, needs B UE for support due to pain level Stand to sit stand by assist, needs B UE for support due to pain level Gait: Tolerated 75 steps with [employer]ACHINE using FWW ? Balance: Static Sitting: Good Dynamic Sitting: Fair Static Standing: Fair Dynamic Standing: Fair Lasegue's Test: Positive on B sides Slump Test: Positive ASSESSMENT: L3-L4 and L4-L5 radiculopathy limited today's mobility assessment. Lumbar spine currently highly irritable as movement/mobility performance continues to exacerbate pain level up to 9-10/10. Patient was seen 2.5 hours after intake of Tulenol and Oxycodone. Will benefit from outpatient PT to contnue with trunk stabilization, core strengtening, postural re-education to minimize progression of disc protrusion camilo awaiting outpatient [facility] clininc consultation. Patient presents with clinical signs and symptoms consistent with current/admitting diagnoses that have resulted to mobility limitations, gait instability, generalized weakness, and overall ADL decline as demonstrated by the following impairment level findings: 1. Decreased strength to trunk musculature 2. Impaired sitting/standing balance 3. Impaired activity tolerance 4. Limitation of joint range of motion in lumbar spine 5. Pain with movement at 9-10/10 Impairments are contributing to the following functional limitations: 1. Decline in bed mobility skills 2. Decline in transfer skills 3. Difficulty with ambulation without assistive device and physical assistance 4. Increased completion time for mobility ADL performance 5. Increased risk for falls 6. Difficulty with managing steps alone safely Goals: Goals X1 week 1. Supine-Sit independent NOT MET, CONTINUE WITH OP PT 2. Sit-Supine independent NOT MET, CONTINUE WITH OP PT 3. Sit-Stand independent NOT MET, CONTINUE WITH OP PT 4. Stand-Sit independent with FWW NOT MET, CONTINUE WITH OP PT 5. Bed-Chair independent with FWW NOT MET, CONTINUE WITH OP PT 6. Chair-Bed independent with FWW NOT MET, CONTINUE WITH OP PT 7. Independent gait on level surface with use of FWW for at least 150 feet without report of pain nor dyspnea NOT MET, CONTINUE WITH OP PT 8. Independent stair negotiation while holding onto B rails for at least 4 steps without report of pain nor dyspnea NOT MET, CONTINUE WITH OP PT 9. Independent with home exercise program NOT MET, CONTINUE WITH OP PT 10. Good static and dynamic standing balance/tolerance NOT MET, CONTINUE WITH OP PT DISCHARGE RECOMMENDATIONS: [] Home with no services [] [] Home with services [specify] [X] Home with outpatient PT. Continue with outpatient PT for core strengthening/stabilization, functional mobility progression, and pain management [] SNF for continued rehabilitation [] [] [facility] [] [] SNF versus LTC based on ability to participate and progress [] TREATMENT CODE/TIME: PR Thank you for the opportunity to participate in the care of this patient. Angelita Weaver PT, DPT, CLT [facility] [place], [place]
== END 2023-01-10 14:14 | disposition home or self-care (01) ==
LOC: ER 14:43 → MS 16:37
PROVIDERS: Nurse Practitioner Family; Admitting Provider Internal Medicine; Emergency Provider Emergency Medicine; Visit Provider Internal Medicine
DX: M48.061 Spinal stenosis, lumbar region without neurogenic claudication (principal); M51.36 Other intervertebral disc degeneration, lumbar region; M54.50 Low back pain, unspecified; G89.29 Other chronic pain; E66.9 Obesity, unspecified; I10 Essential (primary) hypertension; E78.5 Hyperlipidemia, unspecified; R26.89 Other abnormalities of gait and mobility; Z68.39 Body mass index [BMI] 39.0-39.9, adult
CPT/HCPCS: 00123; 36415; 80048; 87635; 96372; 96374; 96375; 97110; 97162; 97530; 99285; J1650; 72148; 83735; 85025; 99223; 99232; 99239; G0378; J1100; J1170; J1885; J3010; J3360; J3490; J7509

== ENCOUNTER 2023-08-26 19:23 | Observation (INO) | payer BC, SELFPAY ==
[2023-08-26 19:22] VITALS: BP 131/85; PULSE 63; RESP 24; TEMP 36.6; O2SAT 98
--- NOTE | 2023-08-26 19:33 | ED.GENADUL_ITS ---
Discharge Plan Disposition Patient Disposition: Admit to [facility] Condition: Stable Discharge Details Clinical Impression: Bulging lumbar disc, Lumbar back sprain Admit Date/Time: 08/26/23 23:52 Admit Provider: Grey Oliveira Attending Provider: Grey Oliveira Primary Care Provider: Unknown,Unknown ED Provider: Alonzo Browning Discharge Data Discharge Date/Time-TO BE ENTERED AT DEPARTURE: 08/27/23 00:44 HPI General Date/Time Provider Initiated Documentation: 08/26/23 19:31 . 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 Severity is described as 10/10. Palliating factors include 200mcg fentanyl en route by EMS. Provoking factors include nothing specific, no trauma. Events leading up to the incident/Associated Symptoms: Patient has seen spine at [facility] but they stated they could not operate and to do PT, this was years in the past. Patient not anticoagulated. Related Data Home Medications Medication Instructions Recorded Confirmed amlodipine 10 mg tablet 10 mg PO DAILY 01/08/23 08/26/23 atorvastatin 20 mg tablet 20 mg PO DAILY 01/08/23 08/26/23 cyclobenzaprine 10 mg tablet 10 mg PO TID #30 tabs 01/10/23 08/26/23 metoprolol succinate 50 mg 50 mg PO DAILY 08/27/23 08/27/23 tablet,extended release 24 hr Previous Rx's Medication Instructions Recorded cyclobenzaprine 10 mg tablet 10 mg PO TID #30 tabs 01/10/23 Allergies Allergy/AdvReac Type Severity Reaction Status Date / Time No Known Allergies Allergy Unverified 08/26/23 19:30 General Stated Complaint: Orthopedic ANG: 4 Review of Systems All systems reviewed & are unremarkable except as noted in HPI and below Exam Narrative Exam Narrative: GENERAL APPEARANCE: Well-nourished, non-toxic, awake and alert, atraumatic, no acute distress. SKIN: Warm, pink, dry, intact, without rashes/lesions/ulcerations. HEAD: Normocephalic, atraumatic, normal hair distribution for gender/age. EYES: Pupils PERRLA, EOMs intact without nystagmus, normal conjunctiva, no exudates on lids/lashes. ENT: Nares patent, no circumoral cyanosis, no facial swelling NECK: Supple, trachea midline, painless cervical ROM. LUNGS/CHEST: Lungs CTA bilaterally, non-labored respirations, normal A/P diameter, symmetrical expansion, no chest wall deformity HEART (CV/PV): Regular rate and rhythm without murmur, no peripheral edema, no JVD. ABDOMEN: Soft, non-distended, no guarding. MSK: Normal ROM, no swelling/deformity to bilateral UEs or LEs, moving all extremities without weakness, no cyanosis, spine midline without tenderness, normal curvature. BACK: NEURO: Mental Status AAOx4 - alert to person, place, time, events No facial droop, no forehead involvement. Motor: No focal weakness - strength 5/5 in bilateral UEs and LEs, proximal and distal, symmetric. Sensory: sensation intact to light touch globally. Gait normal: patient ambulated without ataxia into ED room. PSYCH: euthymic, cooperative, pleasant, appropriate speech Course Vital Signs Vital signs: Vital Signs Temperature 36.6 C 08/26/23 19:22 Pulse 63 08/26/23 19:22 Respiratory Rate 24 08/26/23 19:22 Blood Pressure 131/85 08/26/23 19:22 Pulse Oximetry 98 08/26/23 19:22 Temperature 36.6 C 08/26/23 19:22 Temperature Source Temporal Artery Scan 08/26/23 19:22 Pulse 63 08/26/23 19:22 Respiratory Rate 24 08/26/23 19:22 Blood Pressure 131/85 08/26/23 19:22 Pulse Oximetry 98 08/26/23 19:22 Pain Level 9 08/26/23 19:22 Medical Decision Making This dictation utilizes [id number] dictation software and may contain unedited grammatical errors. 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 Severity is described as 10/10. Palliating factors include 200mcg fentanyl en route by EMS. Provoking factors include nothing specific, no trauma. Events leading up to the incident/Associated Symptoms: Patient has seen spine at [facility] but they stated they could not operate and to do PT, this was years in the past. Patients' medical history: Acute exacerbation of chronic low back pain, hypertension. Family and social history: Noncontributory. Pertinent exam findings / vital signs include neurovascularly intact in bilateral lower extremities, sensation intact, movement intact, severe tenderness with any palpation of the lumbar region as a whole, no groin numbness or saddle anesthesia. Differential / pathologies of concern include Lumbar Back Spasm, Disc Herniation, Critical Spinal Stenosis. Diagnostic studies of: -CT Lumbar wo Contrast. Interventions of: -IV APAP, IV ketorlac, PO 5mg diazepam, 25mg IV benadryl, given 1mg IV hydromorphone once fentanyl wore off- still in excruciating pain with any movement. 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 I did give effort of significant analgesics and skeletal muscle relaxers to the patient which did improve his pain at rest but he still having incredible pain with any movement I do not think he can safely ambulate at home or make at home and POV to rest at home. He does state that cyclobenzaprine has helped him in the past but he did require 2.5-day admission for intractable back pain. I discussed the case with hospitalist Dr. Oliveira for possible admit for intractable back pain. Findings not consistent with cauda equina, cord syndrome, cord compression. Disposition of Lumbar Back Sprain, Bulging Lumbar Disc. Patient verbalized understanding of the plan and return to ED criteria and engaged in shared decision making. Medical Records Medical records reviewed: Yes I reviewed the patient's medical records. Imaging Data Radiologic Study: Attestation: I personally reviewed and interpreted this imaging study as follows: Imaging: CT Scan Radiologist's impression: Exam: CT Lumbar Spine Without Contrast Exam date and time: 08/26/2023 8:47 PM Age: 42 years old Clinical indication: Other: Severe lumbar back pain TECHNIQUE: Imaging protocol: Computed tomography of the lumbar spine without contrast. COMPARISON: MR LUMBAR SPINE WO 01/09/2023 10:17 AM FINDINGS: Bones/joints: Lumbar vertebrae are normal in height and alignment with no fracture. There is mild disc space narrowing at L3-L4 and L4-L5 with a small posterior disc bulge. Discs are well preserved at other levels. Facet joints are normal without significant hypertrophic change. Soft tissues: Unremarkable. IMPRESSION: Disc space narrowing and posterior disc bulges at L3-L4 and L4-L5. Dictated and Authenticated by: Dereje Pineda MD. Quality:SDOH Health Related Social Needs: No Data to Display PFSH All Active Problems (Updated 08/27/23 @ 00:18 by Grey Oliveira) DVT prophylaxis (Acute) Intractable low back pain (Acute) Lumbar back sprain (Acute) Bulging lumbar disc (Acute) Acute exacerbation of chronic low back pain (Acute) Medical History (Updated 08/27/23 @ 00:18 by Grey Oliveira) Hyperlipidemia Hypertension Surgical History (Updated 08/27/23 @ 00:09 by Grey Oliveira) H/O pyloric stenosis surgery as young child S/P right knee arthroscopy Family History (Updated 08/27/23 @ 00:10 by Grey Oliveira) Father Heart disease Mother Crohn's disease Social History (Updated 08/27/23 @ 00:10 by Grey Oliveira) Smoking/Tobacco Use Status: Never Smoking risk assessment performed?: Yes Alcohol Intake: current Alcohol Intake frequency: a few times a month Alcohol type: beer Drug use: Never Substance use type: does not use Housing: house Do you feel safe at home: Yes Do you feel safe in your relationship?: Yes Additional 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
[2023-08-26] MEDS: diazePAM 5 MG TAB PO (19:51)
[2023-08-26] MEDS: ACETAMINOPHEN 1,000 MG/100 ML BTL 400 MG IVPB (19:51)
[2023-08-26] MEDS: Ketorolac 15 MG/ML VIAL IVP (19:51)
[2023-08-26 20:14] VITALS: BP 122/78; PULSE 88; RESP 18; O2SAT 96
--- NOTE | 2023-08-26 20:15 | DI.CT_ITS ---
Exam(s) CT LUMBAR SPINE WO EXAM: CT LUMBAR SPINE WO CLINICAL HISTORY: severe lumbar back pain. TECHNIQUE: Imaging Protocol: Axial computed tomography images with coronal and sagittal reformatted images were created and reviewed COMPARISON: MR MR LUMBAR SPINE WO from 01/09/2023 FINDINGS: Bones: The last intervertebral disc space is designated the L5/S1 level for the numbering purpose of this examination. There are endplate osteophytes seen from L3-4 through L5-S1. Mild degenerative ch anges of the facets are seen at L3-L4. Alignment is satisfactory. No fracture is seen. T12-L1: No disc herniations or bulges are present. No central spinal canal or neural foraminal steno sis. L1-2: No disc herniations or bulges are present. No central spinal canal or neural foraminal stenosi s. L2-3: No disc herniations or bulges are present. No central spinal canal or neural foraminal stenosi s. L3-4: There is a mild diffuse disc bulge at this level. There is mild central spinal canal narrowin g. There is mild narrowing of the left neural foramen. No significant right neural foraminal stenos is is seen. L4-5: There is a diffuse disc bulge resulting in mild narrowing of the central spinal canal. There is mild bilateral neural foraminal narrowing. L5-S1: No disc herniations or bulges are present. No central spinal canal or neural foraminal stenos is. Soft Tissues: The visualized SI joints and sacrum are will maintained. The paraspinal soft tissues a re unremarkable. IMPRESSION: 1. No acute fracture or subluxation. 2. Degenerative changes seen at L3-L4 as described above. RADIATION DOSE DELIVERED: 1,014.16mGy.cm Total DLP 1,014.16mGy.cm Total DLP 1,014.16mGy.cm Total DLP DATA REPOSITORY: All CT scans at this facility are submitted to the National Radiology Data Registry (NRDR) Dose Index Registry (DIR) with the [employer] (ACR). RADIATION OPTIMIZATION: All CT scans at this facility use at least one of these dose optimization te chniques: automated exposure control; mA and/or kV adjustment per patient size (includes targeted exa ms where dose is matched to clinical indication); or iterative reconstruction.
[2023-08-26] MEDS: diphenhydrAMINE 50 MG/ML VIAL 25 MG IVP (20:23)
[2023-08-26 21:03] VITALS: BP 132/67; PULSE 68
[2023-08-26] MEDS: HYDROmorphone 2 MG/ML SYR 1 MG IVP (21:13)
--- NOTE | 2023-08-26 21:35 | DI.VRAD_ITS ---
PROCEDURE INFORMATION: Exam: CT Lumbar Spine Without Contrast Exam date and time: 08/26/2023 8:47 PM Age: 42 years old Clinical indication: Other: Severe lumbar back pain TECHNIQUE: Imaging protocol: Computed tomography of the lumbar spine without contrast. COMPARISON: MR LUMBAR SPINE WO 01/09/2023 10:17 AM FINDINGS: Bones/joints: Lumbar vertebrae are normal in height and alignment with no fracture. There is mild disc space narrowing at L3-L4 and L4-L5 with a small posterior disc bulge. Discs are well preserved at other levels. Facet joints are normal without significant hypertrophic change. Soft tissues: Unremarkable. IMPRESSION: Disc space narrowing and posterior disc bulges at L3-L4 and L4-L5. Dictated and Authenticated by: Dereje Pineda MD. Ordering:ADRIANO Rosado MD
--- NOTE | 2023-08-26 23:59 | HPE_ITS ---
Date of service: 08/26/23 Time of Service: 23:59 Assessment and Plan Assessment and plan (1) Intractable low back pain: Status: Acute Assessment and plan: He is unable to mobilize in the ED despite multipe potent opioids, NSAIDs, muscle relaxors, APAP. Will continue with ketoralac along with hydromorphone, APAP, and cyclobenzaprine. Given bowel regimen. PT consult in AM to try to mobilize. (2) Hyperlipidemia: Assessment and plan: continue simvastatin (3) Hypertension: Assessment and plan: Conitnue amlodipine and metoprolol (4) DVT prophylaxis: Status: Acute Assessment and plan: Given immobility, will use LMWH until he is able to mobilize History of Present Illness History of Present Illness Chief Complaint: back pain Narrative: 42 yo F with history of hypertension and hyperlipidemia, lumbar disc disease with recurrent low back pain including admission December 2022 for intractable back pain who presented today with sudden onset severe low back pain and inability to ambulate despite multiple pain medications in the emergency room. He had felt well this morning, went on 8 mile bike ride and walked dog in [place]. 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 No injury, lifting, or trauma. He fell to the ground and was not able to get up. He was brought to the ED by EMS, given 200mcg of fentanyl en route. The pain is sharp, mid low back, associated with spasms on right and left sides of the low back intermittently. Not radiating at this point, though he says raditation to either leg is typical of his episodes a few days in. He has not had fevers or chills, though he gets shivers when the pain is severe. No incontinence of bowel or bladder. No weakness in the legs or other focal weakness, he just cannot stand up even though he wants to. He had a similar episode in 2022 and wad admitted for 2 days. His first episode was in 2010 at [facility] [place]. He has seen [facility] spine clinic but never had surgery. Review of Systems All systems reviewed & are unremarkable except as noted in HPI and below Gastrointestinal Gastrointestinal: Denies abdominal pain, Denies constipation (but has been constipated in past on pain medication), Denies diarrhea, Denies nausea and Denies vomiting Genitourinary Genitourinary: Denies hematuria and Denies difficulty urinating Musculoskeletal Musculoskeletal: Denies atrophy, Denies joint swelling, Denies muscle weakness and Denies tingling Neurologic Neurologic: Denies localized weakness, Denies convulsions, Denies tingling and Denies tremor(s) PFSH All Active Problems (Updated 08/27/23 @ 00:18 by Grey Oliveira) DVT prophylaxis (Acute) Intractable low back pain (Acute) Lumbar back sprain (Acute) Bulging lumbar disc (Acute) Acute exacerbation of chronic low back pain (Acute) Medical History (Updated 08/27/23 @ 00:18 by Grey Oliveira) Hyperlipidemia Hypertension Surgical History (Updated 08/27/23 @ 00:09 by Grey Oliveira) H/O pyloric stenosis surgery as young child S/P right knee arthroscopy Family History (Updated 08/27/23 @ 00:10 by Grey Oliveira) Father Heart disease Mother Crohn's disease Social History (Updated 08/27/23 @ 00:10 by Grey Oliveira) Smoking/Tobacco Use Status: Never Smoking risk assessment performed?: Yes Alcohol Intake: current Alcohol Intake frequency: a few times a month Alcohol type: beer Drug use: Never Substance use type: does not use Housing: house Do you feel safe at home: Yes Do you feel safe in your relationship?: Yes 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 release 24 hr cyclobenzaprine 10 mg tablet 10 mg PO TID #30 tabs 01/10/23 08/26/23 Rx Exam Narrative Exam Narrative: GEN: Alert and oriented x 4, pleasant and cooperative, gives linear history. No acute distress at rest but uncomfortable with any movement. Lying in bed with legs elevated and flexed slightly at knees. HEENT: Head atraumatic. Conjunctiva clear, no icterus. PEERL, EOMI. no rhinorrhea. MMM, OP benign. Neck is supple with no masses or lymphadenopathy, trachea midline LUNGS: CTAB with normal effort CV: RRR with no murmurs, gallops, or rubs. ABD: +BS, soft, NT/ND EXT: no cyanosis, clubbing, or edema MSK: No joint redness or swelling. tender in low back but exam limited by immobility NEURO: CN 2-12 grossly intact. intact movement of 4 extremities including feet/toes, but can not lift legs as causes severe pain. Sensation intact in hands/feet. Symmetric brisk DTRs scot patella and achilles. Normal speech. no tremor. cannot stand or walk. SKIN: No rashes or open wounds. PSYCH: normal mood and affect, though visibly frustrated Results Imaging Additional studies: CT LS spine: Disc space narrowing and posterior disc bulges at L3-L4 and L4-L5. No masses or signs of infection Last Vital Signs Temp 36.6 C 08/26/23 19:22 Pulse 68 08/26/23 21:03 Resp 18 08/26/23 20:14 BP 132/67 08/26/23 21:03 Pulse Ox 96 08/26/23 20:14 Time Spent Time spent with Patient: 55-74 minutes Time was spent: preparing to see the patient(eg.review tests), obtaining and/or reviewing separately otained hiistory, ordering medications,tests, procedures, referring, communicating with other health pediatric critical care nurse, indepentently interpreting results and counseling the patient
[2023-08-27] MEDS: HYDROmorphone 2 MG/ML SYR 1 MG IVP ×4 (00:02→08:45)
[2023-08-27 00:46] VITALS: BP 119/80; PULSE 55; RESP 20; TEMP 36.6; O2SAT 96
[2023-08-27] MEDS: Cyclobenzaprine 10 MG TAB PO ×2 (02:22→10:30)
[2023-08-27] MEDS: Ketorolac 15 MG/ML VIAL IVP ×4 (03:03→21:33)
[2023-08-27 07:23] VITALS: BP 127/85; PULSE 52; RESP 17; TEMP 36.6; O2SAT 95
[2023-08-27] MEDS: Docusate Sodium 100 MG CAP PO ×2 (08:45→21:34)
[2023-08-27] MEDS: Atorvastatin 20 MG TAB PO (08:45)
[2023-08-27] MEDS: Enoxaparin 40 MG/0.4 ML SYR SC ×2 (08:45→21:34)
[2023-08-27] MEDS: amLODIPine 10 MG TAB PO (08:45)
[2023-08-27] MEDS: Acetaminophen 500 MG TAB 1000 MG PO ×3 (08:45→21:33)
[2023-08-27] MEDS: HYDROmorphone 2 MG TAB PO ×2 (11:55→13:32)
[2023-08-27] MEDS: predniSONE 20 MG TAB 60 MG PO (13:31)
[2023-08-27] MEDS: Pantoprazole 40 MG TABCR PO (13:32)
--- NOTE | 2023-08-27 15:40 | PHA.REVIEW2 ---
Pharmacy Admission Review Admission Clinical Review Admission Pharmacy Review: DVT prophylaxis (Acute) Intractable low back pain (Acute) No Known Allergies Allergy (Unverified 08/26/23 19:30) Resuscitation Status Full Code Height 5 ft 11 in Weight 132.449 kg Pharmacy Admission Review Renal Dosing Medications needing adjustments: Reviewed (CrCl 120.22 mL/min) List of meds needing interventions: Current medications are okay Anticoagulation DVT Prophylaxis: Intervened (Changed enoxaparin to 40mg BID due to BMI > 40) Medications: Enoxaparin (40mg BID) Opiate Usage Evaluate Pain Scale/Pains Meds: Reviewed (Hydromorphone PO PRN - no doses given so far) Relevant Labs Electrolytes, C-Reactive P, ESR: Reviewed (No labs for today) Cardiac Review BP, HR, EF%: Reviewed (BP WNL, HR 52) QTc Review QTc: Reviewed (No EKG on file) IV to PO Switch IV Medications: Reviewed (ketorolac) Home Meds Home Med List reviewed: Reviewed Relevent Home Meds Not ordered & why?: metoprolol (bradycardia), cyclobenzaprine (was ordered, then canceled by provider) Current Meds Current Medication Order Review: Intervened Comments: added IV access order set
--- NOTE | 2023-08-27 15:41 | PT.INIE ---
PT Notes Visit Reasons: intractable back pain Physical Therapy Inpatient Initial Evaluation Date: 08/27/2023 Referring Doctor: Grey Oliveira MD PT Orders: PT CONSULT: Safety Consult for MD, intractable back pain, immobile in ED Precautions: Fall. Standard. Activity as tolerated. Patient Profile/Admitting Diagnosis: Patient admitted on 08/26/2023 for intractable low back pain, hyperlipidemia, and HTN. PMHX: All Active Problems (Updated 08/27/23 @ 00:18 by Grey Oliveira) DVT prophylaxis (Acute) Intractable low back pain (Acute) Lumbar back sprain (Acute) Bulging lumbar disc (Acute) Acute exacerbation of chronic low back pain (Acute) Medical History (Updated 08/27/23 @ 00:18 by Grey Oliveira) Hyperlipidemia Hypertension Surgical History (Updated 08/27/23 @ 00:09 by Grey Oliveira) H/O pyloric stenosis surgery as young [place]/P right knee arthroscopy Social History/Home Situation: Lives with in a private home. Independent with all aspects of ADLs prior to surgery. 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 Equipment Owned/DME: Bilateral axillary crutches, FWW Subjective: Patient reports pain in low back at 7-8/10 while attempting a short distance/in-room ambulation. Was trying to get up from being in all 4s position during a [email or web address] practice in the afternoon but did an 8-mile bike hike as well as walked his dog in [facility] early that day. Objective: General Observation: In moderate distress. Anxious about moving. Mental Status: Alert and oriented as to person, place, time, and purpose. Able to pay attention, focus, and respond appropriately. Pain: As above Vital Signs: Closely monitored by nursing staff ROM: Lumbar ROM: Unable to test due to ongoing high level of irritation in the back Right Upper Extremity: Grossly WFL Left Upper Extremity: Grossly WFL Right Lower Extremity: Grossly WFL Left Lower Extremity: Grossly WFL Strength: Lumbar spine strength: Unable to test due to ongoing high level of irritation in the back Right Upper Extremity: Grossly 5/5 Left Upper Extremity: Grossly 5/5 Right Lower Extremity: Grossly 4-/5 Left Lower Extremity: Grossly 4-/5 Bed Mobility/Transfers: Rolling to R/L stand by assist, uses both hands for support R-side lying to sit with contact guard assist, needs use of B hands for support Sit to stand contact guard assist, needs B UE for support due to pain level Stand to sit contact guard assist, needs B UE for support due to pain level Gait: Tolerated 30 steps using FWW. Steps very hesitant, pace significantly low. Limb advancement increases pain level with relief with hip extension/preswing on each leg. Trunk rotation decreased. Balance: Static Sitting: Good Dynamic Sitting: Fair Static Standing: Fair Dynamic Standing: Poor Special Tests: Mobility Limitations Standardized Measure [facility] AM-PAC 6 clicks Basic Mobility Inpatient Short Form: Raw Score: 20 CMS Score: 36% deficit Lasegue's Test: Positive on B sides Informed Consent/Education: Patient was instructed in purpose of PT consult and plan of care. Agreeable to proceed with established PT POC to achieve personal goals. ASSESSMENT: Acute low back pain exacerbation relieved with standing up and aggravated byweight bearing and sit<>stand/supine<>sit movement transition. Lumbar spine currently highly irritable as movement/mobility performance continues to exacerbate pain level up to 7-8/10 with pain medication intake. Patient presents with clinical signs and symptoms consistent with current/admitting diagnoses that have resulted to mobility limitations, gait instability, generalized weakness, and overall ADL decline as demonstrated by the following impairment level findings: 1. Decreased strength to trunk musculature 2. Impaired sitting/standing balance 3. Impaired activity tolerance 4. Limitation of joint range of motion in lumbar spine 5. Pain with movement at 7-8/10 Impairments are contributing to the following functional limitations: 1. Decline in bed mobility skills 2. Decline in transfer skills 3. Difficulty with ambulation without assistive device and physical assistance 4. Increased completion time for mobility ADL performance 5. Increased risk for falls 6. Difficulty with managing steps alone safely Patient is assessed as a 38971 moderate complexity based on the following: History: 42-year-old male with past medical history as indicated above Examination: Demonstrable impairment in strength, balance, and mobility level with underlying impairments and functional limitations as exhibited above as well as deficit score of 73% utilizing the [facility] Mobility Inpatient Short Form Presentation: Evolving Decision Makin moderate complexity Goals: Goals X1 week 1. Supine-Sit independent 2. Sit-Supine independent 3. Sit-Stand independent 4. Stand-Sit independent with FWW 5. Bed-Chair independent with FWW 6. Chair-Bed independent with FWW 7. Independent gait on level surface with use of FWW for at least 150 feet without report of pain nor dyspnea 8. Independent stair negotiation while holding onto B rails for at least 4 steps without report of pain nor dyspnea 9. Independent with home exercise program 10. Good static and dynamic standing balance/tolerance Plan of Care/Treatment Plan: 1-2x/day, 7 days/week x 1 week. Plan of care has been reviewed with the [employer] providing the service under Physical Therapy direction. Initiate Physical Therapy intervention for pain management as needed, strengthening, bed mobility, transfers, gait, stairs, balance training, and use of assistive device. -Coordinate with nurse about premedicating patient for pain. -Initiate extension biased exercises as tolerated within half an hour of pain pill intake: supine anterior pelvic tilting, supine bridge, sitting at edge of bed extension, standing extension, wall sits DISCHARGE RECOMMENDATIONS: [] Home with no services [] [] Home with services [specify] [X] Home with outpatient PT. Continue with outpatient PT for core strengthening/stabilization, functional mobility progression, and pain management [] SNF for continued rehabilitation [] [] [facility] Project [facility] Care [] [] SNF versus LTC based on ability to participate and progress [] TREATMENT CODE/TIME: 75394 x 20 minutes , 55363 x 24 minutes (10:31-11:15). Thank you for the opportunity to participate in the care of this patient. Angelita Waever PT, DPT, CLT [facility] [place], [place]
--- NOTE | 2023-08-27 16:49 | W.PM.PROGNOT ---
Date of Service Date of service: 08/27/23 Time of Service: 16:50 Assessment and Plan Assessment and plan (1) Acute exacerbation of chronic low back pain: Status: Acute Assessment and plan: continue scheduled ketorolac, prednisone, Robaxin and prn dilaudid (I switched him from iv to oral as it will last him longer). continue w/ P.T. I expect him to be moving well enough to go home tomorrow. If he worsens particularly any weakness in lower limbs, numbness or bowel or bladder symptoms then will get emergent MRI of his LS spine and call [facility] spine surgeon. (2) Intractable low back pain: Status: Acute (3) Bulging lumbar disc: Status: Acute Subjective Subjective Interval history since last seen: Mr Paredes still has significant pain w/ movement but no paresthesias, no radicular pains down his legs/feet and no numbness over his perineum nor bowel or bladder incontinence. He has seen a spine clinic at [facility] and has been told he has DJD and does not need surgery. He says that his pain is more manageable today but still hurt w/ getting in/out of bed. He did get up for P.T. today. I told him that we are trying to treat his pain w/ multiple modalities including antiinflammations meds (ketorolac and prednisone), muscle relaxants (I changed him from flexeril to robaxin on scheduled basis) and narcotic analgesics (oral dilaudid). I did put him on Protonix for GI protection since he is on scheduled ketorolac and now prednisone. Exam Narrative Exam Narrative: Pleasant young man who is lying in bed talking w/ his nurse, he does not appear in any distress Legs: +SLR on the R>>L, no numbness or loss of sensation to light touch; DTR right is more brisk than left, otherwise normal strength in both LE Objective Last Vital Signs Temp 36.6 C 08/27/23 07:23 Pulse 52 L 08/27/23 07:23 Resp 17 08/27/23 07:23 BP 127/85 08/27/23 07:23 Pulse Ox 95 08/27/23 07:23 PAWSS Have you Been Recently Intoxicated or Drunk Within the Last 30 days?: No Have you Ever Experienced Previous Episodes of Alcohol Withdrawal?: No Have you ever Experienced Withdrawal Seizures?: No Have you ever Experienced Delirium Tremens(DT)s?: No Have you ever undergone Alcohol Rehabilitation Treatment (i.e, inpt ot outpatient treatment programs)?: No Have you ever Experienced Blackouts?: No Have you ever Combined Alcohol with other Downers within the last 90 days?: No Have you ever Combined Alcohol with any other Substance of Abuse during the last 90 days?: No Positive Blood Alcohol level on Presentation? [PCS.BAL]: No Evidence of Increased Autonomic Activity (i.e. HR>120, tremor, sweating, agitation, nausea)?: No Result: 0 Time Spent with Patient Time Spent with Patient: 35-49 minutes Time was spent: preparing to see the patient(eg.review tests), obtaining and/or reviewing separately otained hiistory, ordering medications,tests, procedures, referring, communicating with other health childcare aide, indepentently interpreting results, counseling the patient and care coordination
[2023-08-27] MEDS: Normal Saline Flush 10 ML SYR IVP (16:59)
[2023-08-27] MEDS: Methocarbamol 750 MG TAB 1500 MG PO ×2 (17:00→21:33)
[2023-08-27 17:22] VITALS: BP 133/84; PULSE 54; RESP 15; TEMP 36.6; O2SAT 96
--- NOTE | 2023-08-27 17:51 | INITIAL_ITS ---
Date of service: 08/27/23 Time of Service: 17:51 Care Management Initial Assmt Initial Assessment Reason for Hospitalization: intractable back pain Functional Status/Living Situation Patient Presentation: Siddhartha was lying flat on his back in bed when CM met with him. He was pleasant in manner and engaged easily in conversation with CM. He was admitted with intractable back pain, an issue he has had in the past as well. 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 He is independent at baseline and does not receive any services. Siddhartha stated that he is basically a very health samuel, except for problems with his back. He does not have advanced directives. At his request, CM provided him with a blank copy and will assist with their completion tomorrow. 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[employer]) Instrumental Activities of Daily Living (ADLs): Independent Medications Medication Management: No Issues/Barriers identified Advance Directives Advance Directives: Do you have an Advance Directive: N 01/08/23 09:49 AD On File at [facility]: N 01/08/23 09:49 Date Asked 08/27/23 08/27/23 14:16 AD Date Reviewed COLST On File at [facility] COLST Date Scanned Comment: provided with a blank copy Code Status Resuscitation Status Full Code Portal Pt does not currently have a portal and education provided: No Insurance Coverage/Financial Issues Insurance: BC/BS ACO Member: No Care Team Visit Care Team Role Provider Type Unknown Unknown Primary Care Provider STAFF PHYSICIAN InPatient [facility] Other Providers OTHER RADHA Guzman Emergency Provider [facility] CABLE INSTALLATION TECHNICIAN Grey Oliveira Admit Provider [facility] STAFF PHYSICIAN Attending Provider Discharge Potential Discharge Needs: PCP F/U Appt Anticipated Barriers to Discharge: None Identified Patient/Family Education Needs: Review discharge instructions, discuss Ask Me Three Transportation: Private vehicle Plan: Anticipate Siddhartha will be discharged home with no new services. He will follow up with his PCP and plan of care and transport with family. CM will support Siddhartha and his discharge planning needs. PFSH All Active Problems (Updated 08/27/23 @ 00:18 by Grey Oliveira) DVT prophylaxis (Acute) Intractable low back pain (Acute) Lumbar back sprain (Acute) Bulging lumbar disc (Acute) Acute exacerbation of chronic low back pain (Acute) Medical History (Updated 08/27/23 @ 00:18 by Grey Oliveira) Hyperlipidemia Hypertension Surgical History (Updated 08/27/23 @ 00:09 by Grey Oliveira) H/O pyloric stenosis surgery as young child S/P right knee arthroscopy Family History (Updated 08/27/23 @ 00:10 by Grey Oliveira) Father Heart disease Mother Crohn's disease Social History (Updated 08/27/23 @ 00:10 by Grey Oliveira) Smoking/Tobacco Use Status: Never Smoking risk assessment performed?: Yes Alcohol Intake: current Alcohol Intake frequency: a few times a month Alcohol type: beer Drug use: Never Substance use type: does not use Housing: house Do you feel safe at home: Yes Do you feel safe in your relationship?: Yes Additional Social history: 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
[2023-08-27] MEDS: HYDROmorphone 2 MG TAB 4 MG PO (18:54)
[2023-08-27 19:20] VITALS: BP 123/79; PULSE 60; RESP 18; TEMP 35.7; O2SAT 92
[2023-08-27 23:59] VITALS: BP 155/80; PULSE 62; RESP 18; TEMP 36.6; O2SAT 97
[2023-08-28] MEDS: Melatonin 3 MG TAB 9 MG PO (00:04)
[2023-08-28] MEDS: HYDROmorphone 2 MG TAB 4 MG PO ×3 (00:04→13:03)
[2023-08-28] MEDS: Polyethylene Glycol 3350 17 GM PACKET PO ×2 (00:04→13:08)
[2023-08-28] MEDS: Ketorolac 15 MG/ML VIAL IVP ×2 (03:14→09:49)
[2023-08-28] MEDS: Enoxaparin 40 MG/0.4 ML SYR SC (07:20)
[2023-08-28] MEDS: Methocarbamol 750 MG TAB 1500 MG PO ×2 (07:20→12:16)
[2023-08-28] MEDS: Acetaminophen 500 MG TAB 1000 MG PO ×2 (07:21→12:17)
[2023-08-28] MEDS: Pantoprazole 40 MG TABCR PO (07:22)
[2023-08-28] MEDS: Docusate Sodium 100 MG CAP PO (07:24)
[2023-08-28] MEDS: amLODIPine 10 MG TAB PO (07:25)
[2023-08-28 07:32] VITALS: BP 137/96; PULSE 69; RESP 20; TEMP 36.1; O2SAT 96
[2023-08-28] MEDS: predniSONE 20 MG TAB 40 MG PO (07:39)
[2023-08-28] MEDS: Atorvastatin 20 MG TAB PO (07:49)
[2023-08-28 08:10] LABS: Abs Immature Grans 0.07 10^3/uL (0.0-0.06); Absolute Basophil Count 0.03 10^3/uL (0.0-0.2); Absolute Eosinophil Count 0.01 10^3/uL (0.0-0.7); Absolute Lymphocyte Count 1.09 10^3/uL (1.2-3.4); Absolute Neutrophil Count 8.57 10^3/uL (1.2-6.7); Basophils % 0.3 %; Eosinophils % 0.1 %; HCT 45.3 % (40.0-50.0); HGB 15.8 g/dL (13.5-17.5); Immature Grans % 0.7 %; Lymphocytes % 10.5 %; MCH 30.3 pg (27.0-33.0); MCHC 34.9 % (32.0-36.0); MCV 87 fL (80-95); MPV 9.5 fL (8.0-11.0); Monocytes % 5.8 %; Neutrophils % 82.6 %; Platelet Count 250 10^3/uL (130-400); RBC 5.21 10^6/uL (4.36-5.78); RDW 11.9 % (11.8-14.1); RDW-SD 37.9 fL; WBC 10.37 10^3/uL (4.4-10.8)
--- NOTE | 2023-08-28 08:51 | PDOC.CMPRO ---
Date of service: 08/28/23 Time of Service: 08:51 Care Management Progress Note Discharge Potential Discharge Needs: PCP F/U Appt Anticipated Barriers to Discharge: None Identified Patient/Family Education Needs: Review discharge instructions, discuss Ask Me Three Transportation: Private vehicle Plan: Anticipate Siddhartha will be discharged home with no new services. He will follow up with his PCP and plan of care and transport with family. CM will support Siddhartha and his discharge planning needs. SDOH(Care Management) Screening Will the Patient Participate in the Screening?: Declined to provide
[2023-08-28] MEDS: Normal Saline Flush 10 ML SYR IVP (09:49)
--- NOTE | 2023-08-28 10:38 | PT.INTREAT ---
PT Notes Visit Reasons: intractable back pain Date: 08/28/23 PRECAUTIONS: Fall. Standard. Activity as tolerated. SUBJECTIVE: Pt reports feeling much better, able to move inside room independently, meds has reduced pain to 5/10 for lowback pain. OBJECTIVE: ? PAIN: 5/10 lowback VITALS: Monitored by nursing? Therapeutic Activities 12912: Direct one-on-one instruction in dynamic activities to improve functional performance. ?? BED MOBILITY/TRANSFERS? Rolling L/R: independent Supine-sit: ? ?independent? Sit-supine: ? independent? Sit-stand: ? ?independent ? Stand-sit: ??independent ? Bed-Chair:? independent? Chair-bed: independent Provided skilled cues and instruction on performance and technique throughout. Access Code: [email or web address] URL: [email or web address] Date: 08/28/2023 Prepared by: Herrera Weaver Patient Education - Office Posture - Lifting Techniques - Household Activities - Sleep Positions - Managing Back Pain Gait Training 01240: Direct one-on-one instruction and skilled instruction in: Employing an assistive device Modified weight-bearing status Movement sequencing Turning and movement with proper form Provided verbal cues for equipment management and technique Provided instruction in gait pattern Patient education regarding pacing and breathing techniques to maximize activity tolerance? GAIT? Assistive Device: ?No AD ? Weight bearing: FWB Assist: ? ?supervision? Distance:?? ? 500'? Deviation: ? ?exagerrated lumbar extension ? STAIRS:? ? 2 flights of stairs 12steps each 6 alternating step through gait pattern no handrails? Neuromuscular Re-education 52765: Activities that facilitate re-education of movement balance, posture, coordination, and proprioception or kinesthetic sense, requiring skilled tactile and verbal cue Abdominal bracing PPT Gentle hooklying Trunk rotation stretch Self traction standing/seated? ASSESSMENT:?Pt education for proper body mechanics, posture and energy conservation strategies to avoid posterior postural muscle spasms, pt setup with [employer] for paper copy as well as online guide when pt gets home PLAN: DC to home with outpt PT TREATMENT CODE/TIME: 24460x5, 16466i7 30mins ( 10:10, 10:40am)
--- NOTE | 2023-08-28 13:03 | DSE_ITS ---
Date of service: 08/28/23 Time of Service: 13:03 DS: Diagnosis Discharge Diagnosis (1) Acute exacerbation of chronic low back pain: Status: Acute Asessment and Plan: see admission H&P for details of his presenting symptoms. Mr Paredes has known DJD of his LS spine w/ prior flare ups of back pain which have lead to [place] [facility] [place] for which no surgery has been recommended. This has always been able to be treated conversvatively w/ rest, NSAIDs and steroids and prn muscle relaxers and rare use of narcotics. 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 Prior to this he had been active w/ biking, walking dog, etc w/out pain He had no radicular symptoms, pain located in lower lumbar area w/out radiation and no cauda equina symptoms. CT LS spine showed mild diffuse DJD of spine/disc bulging but no rupture, some spinal canal stenosis and neural foraminal narrowing. See CT report for details. Patient was admitted for pain control and P.T. as the E.D. provider could not get adequate pain control and patient was unable to ambulate or transfer in/out of bed unassisted d/t the pain. Pain initially controlled w/ iv narcotics and ketorolac, muscle relaxers and prednisone added. P.T. was consulted and the next morning he was still needing assistance in getting in/out of bed and getting to the bathroom and was in significant pain. By the morning of 08/28/23 his pain was tolerable, he was on oral narcotics, prednisone although still getting ketorolac, and he was on Robaxin (replaced his flexeril). He was now able to get in and out of bed independently and walk to the bathroom. He was eager to return home. He will be dc home on 5 days of Robaxin, a slow taper of prednisone, 5 days of prn oxycodone, he should use schedule Tylenol 1000 mg tid for next 5 days and he may supplement this w/ OTC ibuprofen. He was begun on protonix for GI protection while taking NSAID, prednisone. He should follow up w/ P.T. as outpatient. He was instructed on no heavy lifting/bending/twisting. 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, he should be able to return to work on Thursday (2) Intractable low back pain: Status: Acute (3) Bulging lumbar disc: Status: Chronic Discharge Plan Disposition Patient Disposition: Home Condition: Improving Discharge Details Reason For Visit: intractable back pain Admit Date/Time: 08/26/23 23:52 Admit Provider: Grey Oliveira Attending Provider: Grey Oliveira Primary Care Provider: Unknown,Unknown Home Meds and New Rx's Prescriptions: New pantoprazole [Protonix] 40 mg tablet,delayed release (DR/EC) 40 mg PO DAILY Qty: 30 0RF prednisone 20 mg tablet 20 mg PO DIRECTED Qty: 20 0RF Rx Instructions: 40 mg/d x 5d, 30 mg/d x 3d, 20 mg/d x 3d, 10 mg/d x 3d methocarbamol 750 mg tablet 1,500 mg PO QID 5 Days Qty: 40 0RF acetaminophen 500 mg tablet 1,000 mg PO TID 5 Days Qty: 30 0RF oxycodone 10 mg tablet 10 mg PO TID PRN5 Days Qty: 15 0RF naloxone [Narcan] 4 mg/actuation spray,non-aerosol 4 mg intranasal Q2M PRNQty: 2 0RF Rx Instructions: spray 1 dose into ONE nostril; alternate nostrils w each dose until help arrives Continued atorvastatin 20 mg tablet 20 mg PO DAILY amlodipine 10 mg tablet 10 mg PO DAILY metoprolol succinate 50 mg tablet extended release 24 hr 50 mg PO DAILY Patient Comments: TAKE 1 TABLET BY MOUTH EVERY DAY Discontinued cyclobenzaprine 10 mg Tablet 10 mg PO TID Qty: 30 0RF Discharge Instructions Instructions: Low Back Pain (DC), Active Range of Motion Exercises, Back and Hips, Oxycodone and Naloxone, Methocarbamol, Prednisone, Sciatica Exercises Additional Instructions: You were treated for an acute flare up of your degenerative disc disease of your lumar spine. No fractures nor any infiltrative process was seen. You do have mild diffuse degenerative disc changes including bulging discs some of which is causing central spinal canal stenosis and neural foraminal narrowing (area where nerves exit the spinal core from the spine). You did not exhibit any acute cord compression symptoms nor any radicular pain or weakness down your legs which can be a sign of an acute disc ruputure. You did improve w/ use of NSAID, prednisone, muscle relaxers and oral narcotics along w/ some physical therapy. You should continue the prednisone taper, continue OTC Tylenol or ibuprofen and use the muscle relaxers regularly for a few days. Use the oxycodone on an as needed basis for severe pain not controlled by the Tylenol, ibuprofen or prednisone. Be careful about operating a motorized vehicle while on narcotics and muscle relaxers. Do not perform any activity which may put you in jeopardy in the event you become somnolent from your medicines. Do not perform any t wisting/bending or heavy lifting (nothing heavier than you dinner plate) for next several days. Please follow up w/ outpatient physical therapy and see your PCP next week. Should you have any bowel or bladder incontinence, worsening back pain or pain radiating down the legs or muscle weakness in legs/feet or numbness or tingling in your legs, please return to the emergency room. Referrals: Farzana Ulloa MD [ [facility] STAFF PHYSICIAN] - (to be seen in the next week regarding follow up of low back pain) Flash Pascual,[facility] [OTHER] - Activity:: Activity as Tolerated Equipment/Supplies:: No Equipment Needed Diet:: Normal Diet Discharge Orders Discharge Orders: Discharge Order (Routine); Ordered 08/28/23 Ordered By: Travon Dumont DS: Summary Time Spent with Patient providing and/or coordinating discharge services: Greater than 30 minutes Status at Discharge Functional status at discharge: independent ambulation Overall status at discharge: patient is progressing back to baseline Mental Status: mental status grossly normal Speech and Movement: speech and movement normal Mood: congruent mood Affect: normal affect Quality:SDOH Health Related Social Needs: No Data to Display Exam Narrative Exam Narrative: Doron is feeling markedly better, able to lift/bend his legs, transer out of bed, he denies any radicular pain or numbness in his legs Psych Mental Status: mental status grossly normal Speech and Movement: speech and movement normal Mood: congruent mood Affect: normal affect DS: Data Vitals/I&O Vitals and I&O: Vital Signs Temperature 36.1 C L 08/28/23 07:32 Temperature Source Temporal Artery Scan 08/28/23 07:32 Pulse 69 08/28/23 07:32 Pulse Rhythm Regular 08/28/23 07:50 Respiratory Rate 20 08/28/23 07:32 Respiratory Effort Normal, Non-Labored 08/28/23 07:50 Respiratory Depth Normal 08/28/23 07:50 Respiratory Pattern Normal 08/28/23 07:50 Blood Pressure 137/96 H 08/28/23 07:32 Blood Pressure Mean 88 08/26/23 21:03 Blood Pressure Position Supine 08/26/23 20:14 Pulse Oximetry 96 08/28/23 07:32 Oxygen Delivery Method Room Air 08/28/23 07:32 Oxygen Flow Rate 0 08/28/23 07:32 Pain Level 3 08/28/23 09:49 Intake & Output 08/27/23 08/28/23 08/28/23 23:59 11:59 23:59 Intake Total Balance Intake: IV Other: Urine Color Yellow Urine Appearance Clear Urine Odor None Comment voided in toilet Voiding Methods Toilet Data Completed and Pending Labs on day of discharge: Labs from last 24 hours 08/28/23 07:52 WBC 10.37 RBC 5.21 Hgb 15.8 Hct 45.3 MCV 87 MCH 30.3 MCHC 34.9 RDW 11.9 Plt Count 250 MPV 9.5 Immature Gran % 0.7 Neutrophils % 82.6 Lymphocytes % 10.5 Monocytes % 5.8 Eosinophils % 0.1 Basophils % 0.3 Nucleated RBC % 0.0 Absolute Neutrophils 8.57 H Absolute Lymphocytes 1.09 L Absolute Monocytes 0.60 Absolute Eosinophils 0.01 Absolute Basophils 0.03 PFSH All Active Problems DVT prophylaxis (Acute) Intractable low back pain (Acute) Lumbar back sprain (Acute) Bulging lumbar disc (Chronic) Acute exacerbation of chronic low back pain (Acute) Medical History Hyperlipidemia Hypertension Surgical History H/O pyloric stenosis surgery as young child S/P right knee arthroscopy Family History Father Heart disease Mother Crohn's disease Social History Smoking/Tobacco Use Status: Never Smoking risk assessment performed?: Yes Alcohol Intake: current Alcohol Intake frequency: a few times a month Alcohol type: beer Drug use: Never Substance use type: does not use Housing: house Do you feel safe at home: Yes Do you feel safe in your relationship?: Yes Additional Social history: 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
--- NOTE | 2023-08-28 15:50 | PDOC.CMDIS ---
Date of service: 08/28/23 Time of Service: 15:51 LACE Index Scoring Tool Questions: Length of Stay (in days): 2 Was the patient admitted via the E.D.?: Yes E.D. Visits: 1 Answers: Total Score: 6 Risk of Readmission: Low Risk Care Management Discharge Plan Reason for Hospitalization: back pain Discharge Plan: Siddhartha will be discharged home with no new services. He will follow up with his PCP and plan of care and transport with family. CM completed Advanced Directives with Siddhartha before he left and provided him with copies. CM also faxed to his PCP, [facility]. Patient/Family Education Needs: Review discharge instructions, discuss Ask Me Three SDLA Health Related Social Needs: No Data to Display
== END 2023-08-28 14:45 | disposition home or self-care (01) ==
LOC: ER 08-27 00:16 → MS 08-27 10:37
PROVIDERS: Internal Medicine; Admitting Provider Family Medicine; Emergency Provider Physician Assistant; PCP Family Medicine; Visit Provider Family Medicine
DX: M51.36 Other intervertebral disc degeneration, lumbar region; M54.50 Low back pain, unspecified; M47.816 Spondylosis without myelopathy or radiculopathy, lumbar region; E78.5 Hyperlipidemia, unspecified; I10 Essential (primary) hypertension; G89.29 Other chronic pain
CPT/HCPCS: 00123; 36415; 96365; 96372; 96375; 96376; 97112; 97162; 97530; 99285; J1650; 72131; 85025; 99222; 99232; 99238; G0378; J0131; J1170; J1200; J1885; J7512

== ENCOUNTER 2024-02-07 12:57 | Emergency (ER) | payer BC, SELFPAY ==
[2024-02-07] VITALS (8 sets, daily range): BP systolic 128–150; BP diastolic 88–117; PULSE 63–71; RESP 24; TEMP 37; O2SAT 89–99
--- NOTE | 2024-02-07 13:00 | DI.CT_ITS ---
Exam(s) CT RENAL COLIC WO EXAM: CT RENAL COLIC WO CLINICAL HISTORY: acute onset lower back pain bilterally. TECHNIQUE: Imaging Protocol: Axial computed tomography images with coronal and sagittal reformatted images were created and reviewed CONTRAST MATERIAL: Intravenous: none Oral: None COMPARISON: No exams were available for comparison FINDINGS: VISUALIZED LUNG BASES: No nodules nor pleural effusions evident. ABDOMEN: There is no ascites. LIVER: There are no obvious focal hepatic lesions evident of this noninfused study. GALLBLADDER/BILIARY: No obvious gallbladder pathology. CBD is not dilated. PANCREAS: No evidence of pancreatic mass nor dilatation of the pancreatic duct. SPLEEN: Spleen is not enlarged. No obvious intrasplenic lesions. ADRENALS: There are no significant adrenal masses. KIDNEYS:No cysts evident. No solid renal masses. No calculi nor hydronephrosis. . ABDOMINAL AORTA: No evidence of aneurysm. However, there is some mild streaking around the lower abd ominal aorta at approximately the level the inferior mesenteric artery. This does not continue aroun d the aortic bifurcation nor along the iliac vessels. LYMPH NODES: There is no retroperitoneal nor paraaortic adenopathy. ABDOMINAL WALL: No evidence of significant anterior abdominal wall nor inguinal hernia. GI: There is no evidence of bowel obstruction, free air, nor abscess. PELVIS: LYMPH NODES: There is no intrapelvic nor inguinal adenopathy. GI: No evidence of appendicitis.No evidence of sigmoid diverticulitis. URINARY BLADDER: No calculi nor obvious masses evident REPRODUCTIVE: Prostate size normal. Seminal vesicles unremarkable. Osseous: No fractures nor osseous lesions. Sacroiliac joints appear unremarkable. IMPRESSION: There is mild nonspecific streaking around the lower abdominal aorta. This may be related to mild mo tion artifact but cannot exclude aortic pathology. There is no aneurysm of the aorta. Luminal april cteristics cannot be assessed because this is a noninfused study.. Therefore if clinically indicated contrast infused CT angiography can be performed complicated clearly if there is any suspicion for d issection. RADIATION DOSE DELIVERED: 1,197.74mGy.cm Total DLP DATA REPOSITORY: All CT scans at this facility are submitted to the National Radiology Data Registry (NRDR) Dose Index Registry (DIR) with the [employer] (ACR). RADIATION OPTIMIZATION: All CT scans at this facility use at least one of these dose optimization te chniques: automated exposure control; mA and/or kV adjustment per patient size (includes targeted exa ms where dose is matched to clinical indication); or iterative reconstruction.
--- NOTE | 2024-02-07 13:13 | DI.CT_ITS ---
Exam(s) CT LUMBAR SPINE RECONS EXAM: CT LUMBAR SPINE RECONS CLINICAL HISTORY: lumbar back pain, lumbar CT. TECHNIQUE: Imaging Protocol: Axial computed tomography images with coronal and sagittal reformatted images were created and reviewed COMPARISON: CT CT RENAL COLIC WO from 02/07/2024 FINDINGS: Bones: There are no fractures, listhesis, nor pars defects. There are no lytic osseous lesions evide nt.There is mild disc space narrowing and anterior osseous lipping at L4-5 level. INDIVIDUAL LEVELS: T12-L1:No disc herniation nor canal stenosis. Facet joints unremarkable. No foraminal stenosis. L1-2: No disc herniation nor canal stenosis. Facet joints unremarkable. No foraminal stenosis. L2-3: Mild annular bulging right more than left. Mild central canal stenosis. Mild foraminal steno sis on the right side. No foraminal stenosis on the left side. Facet joints unremarkable. L3-4: Mild decreased disc height. There is a broad-based disc herniation central-right paracentral w hich impresses the thecal sac. Moderate central spinal canal stenosis is evident. Disc protrusion ext ends into the floor of the exiting right neural foramen causing an element of mild-moderate foraminal stenosis on the right side. There is no foraminal stenosis on the left side. Facet joints unremarkab le. L4-5: Decreased disc height. Anterior osseous lipping. Posteriorly there is broad annular bulging wi th moderate-severe central spinal canal stenosis. Mild bilateral foraminal stenosis. Facet joints unr emarkable. L5-S1: Relatively preserved disc height. No disc herniation or central canal stenosis. However, ther e is an element of foraminal stenosis left more so than right. The visualized sacroiliac joints and sacrum appear unremarkable. PARASPINAL SOFT TISSUES: Visualized paraspinal tissues appear unremarkable. IMPRESSION: 1. No evidence of fracture or listhesis. 2. Significant disc herniation at L3-4 level as described above with element of central spinal canal stenosis and right foraminal stenosis at this level. 3. Broad annular bulging at L4-5 level with moderate-severe central canal stenosis and mild bilateral foraminal stenosis. 4. Mild annular bulging at L5-S1 level. There is left-sided foraminal stenosis on the left side RADIATION DOSE DELIVERED: 1,197.74mGy.cm Total DLP DATA REPOSITORY: All CT scans at this facility are submitted to the National Radiology Data Registry (NRDR) Dose Index Registry (DIR) with the [employer] (ACR). RADIATION OPTIMIZATION: All CT scans at this facility use at least one of these dose optimization te chniques: automated exposure control; mA and/or kV adjustment per patient size (includes targeted exa ms where dose is matched to clinical indication); or iterative reconstruction.
--- NOTE | 2024-02-07 13:15 | W.ED.GENAD ---
Discharge Plan Disposition Patient Disposition: Home Condition: Stable Discharge Details Clinical Impression: Acute lumbar back pain Primary Care Provider: Jeremie Gonzalez ED Provider: Solomon Magallon Home Meds and New Rx's Prescriptions: New cyclobenzaprine 10 mg tablet 10 mg PO TID PRNQty: 20 0RF ketorolac 10 mg tablet 10 mg PO Q8H PRN (Reason: pain) 1 Days Qty: 30 0RF oxycodone 5 mg tablet 5 mg PO Q12H PRN (Reason: pain) Qty: 8 0RF Continued atorvastatin 20 mg tablet 20 mg PO DAILY amlodipine 10 mg tablet 10 mg PO DAILY metoprolol succinate 50 mg tablet extended release 24 hr 50 mg PO DAILY Patient Comments: TAKE 1 TABLET BY MOUTH EVERY DAY pantoprazole [Protonix] 40 mg tablet,delayed release (DR/EC) 40 mg PO DAILY Qty: 30 0RF naloxone [Narcan] 4 mg/actuation spray,non-aerosol 4 mg intranasal Q2M PRNQty: 2 0RF Rx Instructions: spray 1 dose into ONE nostril; alternate nostrils w each dose until help arrives Discontinued prednisone 20 mg tablet 20 mg PO DIRECTED Qty: 20 0RF Rx Instructions: 40 mg/d x 5d, 30 mg/d x 3d, 20 mg/d x 3d, 10 mg/d x 3d Discharge Instructions Additional Instructions: You can take 600 mg of ibuprofen and 1000 mg of acetaminophen every 6 hours as needed. Follow-up with your primary care provider this week specially if pain continues If you feel more ill, or have new symptoms such as high fevers return to the emergency department for reevaluation HPI General Mode of arrival: ambulatory. Date/Time Provider Initiated Documentation: 02/07/24 12:58. Limitations to Documentation: no limitations. Information obtained by: patient. History of Present Illness 43 year old M presents to the emergency department with the chief complaint of lumbar back pain, described as severe, Patient started experiencing this hour(s) (1) and it has been constant. No relieving factors improve symptom(s), No exacerbating factors reported . Patient notes denies chest pain, fever/chills and shortness of breath. Related Data Home Medications ?Medication ?Instructions ?Recorded ?Confirmed amlodipine 10 mg tablet 10 mg PO DAILY 01/08/23 08/26/23 atorvastatin 20 mg tablet 20 mg PO DAILY 01/08/23 08/26/23 metoprolol succinate 50 mg 50 mg PO DAILY 08/27/23 08/27/23 tablet,extended release 24 hr naloxone 4 mg/actuation nasal 4 mg intranasal Q2M PRN #2 ea 08/28/23 spray (Narcan) pantoprazole 40 mg tablet,delayed 40 mg PO DAILY #30 tabs 08/28/23 release (Protonix) cyclobenzaprine 10 mg tablet 10 mg PO TID PRN #20 tabs 02/07/24 ketorolac 10 mg tablet 10 mg PO Q8H PRN pain 1 day #30 02/07/24 tabs oxycodone 5 mg tablet 5 mg PO Q12H PRN pain #8 tabs 02/07/24 Previous Rx's ?Medication ?Instructions ?Recorded naloxone 4 mg/actuation nasal 4 mg intranasal Q2M PRN #2 ea 08/28/23 spray (Narcan) pantoprazole 40 mg tablet,delayed 40 mg PO DAILY #30 tabs 08/28/23 release (Protonix) cyclobenzaprine 10 mg tablet 10 mg PO TID PRN #20 tabs 02/07/24 ketorolac 10 mg tablet 10 mg PO Q8H PRN pain 1 day #30 02/07/24 tabs oxycodone 5 mg tablet 5 mg PO Q12H PRN pain #8 tabs 02/07/24 Allergies Allergy/AdvReac Type Severity Reaction Status Date / Time No Known Allergies Allergy Unverified 02/07/24 13:09 General Stated Complaint: Nk/Back Pain ANG: 3 Review of Systems All systems reviewed & are unremarkable except as noted in HPI and below Constitutional Constitutional: Denies chills, Denies fever(s) and Denies weakness Cardiovascular Cardiovascular: Denies chest pain and Denies dyspnea Respiratory Respiratory: Denies cough and Denies dyspnea Gastrointestinal Gastrointestinal: Denies abdominal pain, Denies nausea and Denies vomiting Musculoskeletal Musculoskeletal: Reports back pain and Denies joint swelling Integumentary/Breasts Skin/Breast: Denies rash Neurologic Neurologic: Denies weakness Exam Const Orientation: alert [facility] Head: normal to inspection Ears: external ears normal General nose exam: external nose normal Mouth: moist mucous membranes Eyes General: appearance normal, both eyes and all related structures Neck Neck: normal visual inspection Resp Effort & Inspection: normal respiratory effort and able to speak in complete sentences Cardio Rate: regular rate GI Palpation: soft and nontender Back/Spine/Pelvis Back: no CVA tenderness Thoracic/Lumbar Spine: thoraco-lumbar spasm, No thoracic spinal tenderness and lumbar spinal tenderness Skin General skin exam: no rashes or lesions noted Neuro General: patient alert and patient oriented x3 Extrem General: normal to inspection Psych Mental Status: mental status grossly normal Course Vital Signs Vital signs: Vital Signs Temperature 37 C 02/07/24 13:05 Pulse 71 02/07/24 13:05 Respiratory Rate 24 02/07/24 13:05 Blood Pressure 150/117 H 02/07/24 13:05 Pulse Oximetry 99 02/07/24 13:05 Temperature 37 C 02/07/24 13:05 Temperature Source Oral 02/07/24 13:05 Pulse 71 02/07/24 13:05 Respiratory Rate 24 02/07/24 13:05 Blood Pressure 150/117 H 02/07/24 13:05 Blood Pressure Position Supine 02/07/24 13:05 Pulse Oximetry 99 02/07/24 13:05 Oxygen Delivery Method Room Air 02/07/24 13:05 Oxygen Flow Rate 0 02/07/24 13:05 Pain Level 10 02/07/24 13:12 Medical Decision Making 43-year-old male whose had issues with his lower back for months and was admitted for back pain and August comes in with acute onset lower back pain after he was getting out of the shower. He did not fall or strike his head. He localizes the pain to the entire lumbar region. no chest pain. He has no thoracic spinal tenderness. Has tenderness throughout his lumbar region. No palpable or visible deformities. No abdominal tenderness. I suspect acute on chronic exacerbation of his back pain, could be muscle spasm, versus muscle strain versus disc herniation. He has no saddle anesthesia and intact distal sensation and pulses so doubt entities such as cauda equina or arterial occlusion or dissection. No IV drug use and no fever so doubt spinal epidural abscess. Given the acute onset of nature will obtain CT renal colic to evaluate for kidney stone and also obtain recons of the lumbar spine. He has no abdominal tenderness so doubt intra-abdominal pathology such as bowel obstruction or appendicitis. Labs show mild JOAN with creatinine 1.4 otherwise no significant findings. I suspect this is from mild dehydration. Patient still having pain we will order another dose of Toradol and Dilaudid. No acute findings on CT renal colic, CT lumbar spine still pending Cat-AZT shows disc bulging and spinal stenosis, patient is stable and feels better. Still no saddle anesthesia. He is stable for discharge, he will follow-up with his PCP and return precautions given. Differential Diagnosis Differential Diagnosis: Muscle spasm, disc herniation, kidney Medical Records Medical records reviewed: Yes I reviewed the patient's medical records. Lab Data Lab results reviewed: Yes I reviewed the patient's lab results. Quality:SDOH Health Related Social Needs: No Data to Display PFSH All Active Problems (Updated 02/07/24 @ 14:51 by Solomon Magallon MD) Acute lumbar back pain (Acute) Intractable low back pain (Acute) Lumbar back sprain (Acute) Bulging lumbar disc (Chronic) Acute exacerbation of chronic low back pain (Acute) Medical History Hyperlipidemia Hypertension Surgical History H/O pyloric stenosis surgery as young child S/P right knee arthroscopy Family History Father Heart disease Mother Crohn's disease Social History Smoking/Tobacco Use Status: Never Smoking risk assessment performed?: Yes Alcohol Intake: current Alcohol Intake frequency: a few times a month Alcohol type: beer Drug use: Never Substance use type: does not use Housing: house Do you feel safe at home: Yes Do you feel safe in your relationship?: Yes Additional Social history: 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
[2024-02-07] MEDS: HYDROmorphone 2 MG/ML SYR IVP ×2 (13:21→14:55)
[2024-02-07] MEDS: Ketorolac 15 MG/ML VIAL IVP ×2 (13:21→14:55)
[2024-02-07] MEDS: Cyclobenzaprine 10 MG TAB PO (13:21)
[2024-02-07 14:01] LABS: Abs Immature Grans 0.04 10^3/uL (0.0-0.06); Absolute Basophil Count 0.05 10^3/uL (0.0-0.2); Absolute Eosinophil Count 0.18 10^3/uL (0.0-0.7); Absolute Lymphocyte Count 1.48 10^3/uL (1.2-3.4); Absolute Monocyte Count 0.39 10^3/uL (0.1-0.8); Absolute Neutrophil Count 3.76 10^3/uL (1.2-6.7); Basophils % 0.8 %; Eosinophils % 3.1 %; HCT 42.3 % (40.0-50.0); HGB 14.7 g/dL (13.5-17.5); Immature Grans % 0.7 %; Lymphocytes % 25.1 %; MCHC 34.8 % (32.0-36.0); MCV 89 fL (80-95); MPV 9.4 fL (8.0-11.0); Monocytes % 6.6 %; Neutrophils % 63.7 %; Platelet Count 209 10^3/uL (130-400); RBC 4.74 10^6/uL (4.36-5.78); RDW 11.9 % (11.8-14.1); RDW-SD 38.5 fL
[2024-02-07 14:24] LABS: ALT 27 U/L (16-63); AST 20 U/L (15-37); Alkaline Phosphatase 62 U/L (46-116); BUN 15 mg/dL (7-18); Bilirubin, Total 0.55 mg/dL (0.2-1.0); CREATININE 1.4 mg/dL (0.70-1.30); Chloride 107 mmol/L (98-107); Estimated GFR 63.56 (mL/min/1.73m2); Glucose 98 mg/dL (74-106); Lipase 52 U/L (<78); Potassium 3.6 mmol/L (3.5-5.1); Sodium 143 mmol/L (136-145); TSH (W/Ref FT4) 2.27 uIU/mL (0.36-3.74); Total Protein 7.8 g/dL (6.4-8.2)
--- OUTSIDE RECORDS SUMMARY | 2024-02-07 14:28 | XMS_ITS | Encounter Summary ---
Author Organization [facility] Address [address] [place] [address] Care Team Providers Care Tumblers Supervisor Name Role Phone None Primary Care Provider Unavailabl e Encounter Details Date Type Department Care Team (Late st Contact Info) Description 05/06/2016 Telephone [facility] [address] [place] [address] Megan Davila, RN Social History Tobacco Use Types Packs/Day Years Used Date Smoking Tobacco: Former Sex and Gender Information Value Date Recorded Sex Assigned at Not on file Gender Identity Not on file Sexual Orientation Not on file documented as of this encounter Plan of Treatment Not on file documented as of this encounter Visit Diagnoses Not on filedocumented in this encounter Care Teams Tumblers Supervisor Relationship Specialty Start Date End Date None None PCP - General 04/04/14 03/29/23 documented as of this encounter
--- OUTSIDE RECORDS SUMMARY | 2024-02-07 14:28 | XMS_ITS | Encounter Summary ---
Author Organization [facility] Address [facility] [place] [address] Care Team Providers Care Php Developer Name Role Phone None Primary Care Provider Unavailabl e Encounter Details Date Type Department Care Team (Late st Contact Info) Description 2014 Telephone Sleep Center at [facility] [address] [place] [address] Sanjana Henry MD [facility] [address] [place] [address] Social History Tobacco Use Types Packs/Day Years Used Date Smoking Tobacco: Former Sex and Gender Information Value Date Recorded Sex Assigned at Not on file Gender Identity Not on file Sexual Orientation Not on file documented as of this encounter Miscellaneous Notes * Telephone Encounter - Sanjana Henry MD - 09/08/2014 2:36 PM EDT Called again - no answer. Left message. * Telephone Encounter - Sanjana Henry MD - 09/08/2014 10:46 AM EDT Called - no answer. * Telephone Encounter - Liz Pineda - 09/06/2014 7:10 AM EDT . documented in this encounter Plan of Treatment Not on file documented as of this encounter Visit Diagnoses Not on filedocumented in this encounter Care Teams Php Developer Relationship Specialty Start Date End Date None None PCP - General 04/04/14 03/29/23 documented as of this encounter
--- OUTSIDE RECORDS SUMMARY | 2024-02-07 14:28 | XMS_ITS | Encounter Summary ---
Author Organization [facility] Address [facility] [place] [address] Care Team Providers Care Marine Erector Name Role Phone None Primary Care Provider Unavailabl e Encounter Details Date Type Department Care Team (Late st Contact Info) Description 12/24/2022 Telephone [place] [address] Tammy García Social History Tobacco Use Types Packs/Day Years Used Date Smoking Tobacco: Former Sex and Gender Information Value Date Recorded Sex Assigned at Not on file Gender Identity Not on file Sexual Orientation Not on file documented as of this encounter Miscellaneous Notes * Telephone Encounter - Tammy García - 12/24/2022 11:51 AM EDT Returned call to BILLY Gandhi advising that we would need a referral before we could get Vincent scheduled here in clinic. Advised that we would need referral, any notes of him being evaluated for particular issue, and if any imaging were done and fax to [phone]. documented in this encounter Plan of Treatment Not on file documented as of this encounter Visit Diagnoses Not on filedocumented in this encounter Care Teams Marine Erector Relationship Specialty Start Date End Date None None PCP - General 04/04/14 03/29/23 documented as of this encounter
--- OUTSIDE RECORDS SUMMARY | 2024-02-07 14:28 | XMS_ITS | Encounter Summary ---
Author Organization [facility] Address [facility] [place] [address] Care Team Providers Care Scalloper Name Role Phone None Primary Care Provider Unavailabl e Encounter Details Date Type Department Care Team (Late st Contact Info) Description 07/26/2014 Orders Only Sleep Center at [facility] [address] [place] [address] Sanjana Henry MD [facility] [place] [address] Social History Tobacco Use Types Packs/Day Years Used Date Smoking Tobacco: Former Sex and Gender Information Value Date Recorded Sex Assigned at Not on file Gender Identity Not on file Sexual Orientation Not on file documented as of this encounter Progress Notes * Sanjana Henry MD - 07/26/2014 9:44 AM EDT Polysomnogram Order Form Room # Technologist Assignment: To be read by on PSG Patient Information Date of study: : 1980 Name: Vincent Paredes Height: 71in Weight: 249# 33 y.o. male Normal sleep hours: 12-6 Arrival Time: Physical/Mobility Limitations: No Cognitive Limitations: No Requires Male Tech: No Requires Female Tech: No Requires 1:1 Care: No Requires Parent/Caregiver: Omar of Parent/Caregiver staying: Using Home Oxygen: No At home sleeps in: Bed PSG Indications: snoring, apneas, disrupted sleep, EDS -- r/o DWAYNE Other Medical Conditions: anxiety, insomnia, HTN PSG Orders Type of study: diagnostic PSG -- split for AHI>30 (at least CMS AHI 10) Additional data required: no Special instructions: no *Initiate CPAP/BPAP/oxygen per previously determined protocols unless otherwise specified. documented in this encounter Plan of Treatment Not on file documented as of this encounter Visit Diagnoses Not on filedocumented in this encounter Care Teams Scalloper Relationship Specialty Start Date End Date None None PCP - General 04/04/14 03/29/23 documented as of this encounter
--- OUTSIDE RECORDS SUMMARY | 2024-02-07 14:28 | XMS_ITS | Encounter Summary ---
Author Organization [facility] Address [facility] [place] [address] Care Team Providers Care Ordnance Mechanic Name Role Phone None Primary Care Provider Unavailabl e Encounter Details Date Type Department Care Team (Late st Contact Info) Description 05/07/2016 Orders Only Sleep Center at [facility] [address] [place] [address] Sondra Carr MD [facility] [place] [address] DWAYNE (obstructive sleep apnea) (Primary Dx) Social History Tobacco Use Types Packs/Day Years Used Date Smoking Tobacco: Former Sex and Gender Information Value Date Recorded Sex Assigned at Not on file Gender Identity Not on file Sexual Orientation Not on file documented as of this encounter Progress Notes * Sondra Carr MD - 05/07/2016 12:27 PM EST Request for Rx to purchase online. Requests [facility]. Sondra Carr MD documented in this encounter Plan of Treatment Not on file documented as of this encounter Visit Diagnoses Diagnosis DWAYNE (obstructive sleep apnea)- Primary Obstructive sleep apnea (adult) (pediatric) documented in this encounter Care Teams Ordnance Mechanic Relationship Specialty Start Date End Date None None PCP - General 04/04/14 03/29/23 documented as of this encounter
--- OUTSIDE RECORDS SUMMARY | 2024-02-07 14:28 | XMS_ITS | Encounter Summary ---
[place] [address] Care Team Providers Care Geometry Teacher Name Role Phone None Primary Care Provider Unavailabl e Reason for Referral * Consultation (Routine) - Closed Specialty Diagnoses / Procedures Referred By Marissa morales Referred To Contact [facility] Diagnoses Acute exacerbation of chronic low back pain Chronic low back pain/MRI 01/09/23 in e- Ced Wright MD [address] [place] [address] [facility] [place] [address] Referral ID Status Reason Start Date Expiration Date V isits Requested Visits Authorized [id number] Closed Consult, Test & Treat PCP Updated and/or Approved 01/16/2023 01/16/2024 1 1 Encounter Details Date Type Department Care Team (Latest Contact Info) Description 01/16/2023 Transcribe Orders eDH Incoming Referrals [phone] Ced Wright MD [address] [place] [address] Acute exacerbation of chronic low back pain Social History Tobacco Use Types Packs/Day Years Used Date Smoking Tobacco: Former Sex and Gender Information Value Date Recorded Sex Assigned at Not on file Gender Identity Not on file Sexual Orientation Not on file documented as of this encounter Plan of Treatment Scheduled Referrals Name Type Priority Associated Diagnoses Orde r Schedule Referral to Spine Center Outpatient Referral Routine Acute exacerbation of chronic low back pain Ordered: 01/16/2023 documented as of this encounter Visit Diagnoses Diagnosis Acute exacerbation of chronic low back pain Lumbago documented in this encounter Care Teams Geometry Teacher Relationship Specialty Start Date End Date None None PCP - General 04/04/14 03/29/23 documented as of this encounter
--- OUTSIDE RECORDS SUMMARY | 2024-02-07 14:28 | XMS_ITS | Encounter Summary ---
Author Organization [facility] Address [facility] [place] [address] Care Team Providers Care Business Rules Analyst Name Role Phone None Primary Care Provider Unavailabl e Encounter Details Date Type Department Care Team (Late st Contact Info) Description 01/09/2023 [place] [address] Klarissa Troncoso PA [facility] [place] [address] Social History Tobacco Use Types Packs/Day Years Used Date Smoking Tobacco: Former Sex and Gender Information Value Date Recorded Sex Assigned at Not on file Gender Identity Not on file Sexual Orientation Not on file documented as of this encounter Plan of Treatment Not on file documented as of this encounter Visit Diagnoses Not on filedocumented in this encounter Care Teams Business Rules Analyst Relationship Specialty Start Date End Date None None PCP - General 04/04/14 03/29/23 documented as of this encounter
--- OUTSIDE RECORDS SUMMARY | 2024-02-07 14:28 | XMS_ITS | Encounter Summary ---
Author Organization [facility] Address [facility] [place] [address] Care Team Providers Care Brazer Crawler Torch Name Role Phone None Primary Care Provider Unavailabl e Reason for Referral * Consultation (Routine) - Closed Specialty Diagnoses / Procedures Referred By Marissa t Referred To Contact Sleep Center Diagnoses Snoring Sanjana Henry MD [facility] [place] [address] [facility] [address] [place] [address] Referral ID Status Reason Start Date Expiration Date V isits Requested Visits Authorized [id number] Closed Test Only 07/26/2014 07/26/2015 3 3 Scheduling Instructions na Encounter Details Date Type Department Care Team (Late st Contact Info) Description 07/26/2014 9:00 AM EDT Office Visit [facility] [address] [place] [address] Sanjana Henry MD [facility] [place] [address] Snoring; Persistent disorder of initiating or maintaining sleep; Hypersomnia, unspecified Social History Tobacco Use Types Packs/Day Years Used Date Smoking Tobacco: Former Sex and Gender Information Value Date Recorded Sex Assigned at Not on file Gender Identity Not on file Sexual Orientation Not on file documented as of this encounter Last Filed Vital Signs Vital Sign Reading Time Taken Comments Blood Pressure 164/98 07/26/2014 9:18 AM EDT Pulse 73 07/26/2014 9:18 AM EDT Temperature - - Respiratory Rate - - Oxygen Saturation - - Inhaled Oxygen Concentration - - Weight 117 kg (258 lb) 07/26/2014 9:18 AM EDT Height 180.3 cm (5' 11) 07/26/2014 9:18 AM EDT Body Mass Index 35.98 07/26/2014 9:18 AM EDT documented in this encounter Progress Notes * Sanjana Henry MD - 07/26/2014 8:58 AM EDT Sleep Medicine Consultation Note HPI: Vincent Paredes is a 33 y.o. male seen at the request of Dr. Dylan Coleman for advice regarding suspected obstructive sleep apnea. present for visit. She reports loud snoring, particularly worse when supine. He reports sleep problems and insomnia starting in graduate school (approx 5 yrs ago). He reports sleep initiation and maintenance problems, with mind racing. Less problems initiatingsleep at this time; still with maintenance problems. He feels like he wakes up a lot; usually wakesup around 4am and has trouble getting back to sleep. Will wake up and think about things. Snoring present for years, although more prominent past 5 yrs. She also feels like the pauses in breathing have been present for years, but also worse over the past 5 yrs. He occasionally is aware of awakeninggasping (1-2x/week). He feels like he only gets 3-4 hrs of sleep. His feels that he moves a lot in his sleep and is restless, although he is not aware. +EDS - most prominent past 2-3 yrs. 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 Would not fall asleep during day at desk or computer. May doze off on couchit sits to relax and watch TV after work. May fall asleep playing video games. Denies sleepiness with driving. Can sleep as passenger on longer trips. Sleep Pattern: Bed/Recliner/Wedge: bed Bedtime: variable; feels like he works best cognitively in the evening and will go to bed 2-3; if more physically active will go to bed 10-11 Lights out: listens to podcasts Latency: 10-15min Awakenings: 3-4 Duration: can be prolonged if later in the morning Reason: not sure Wake time: 7-8 Respiratory: Snoring: yes, can be loud and disruptive especially if on back Observed Apneas: yes Mouth Breathing: thinks less now (thinks used to breathe through mouth more in the past) Dry Mouth: no; wakes up with dry nose Nocturnal Gasping: yes Nasal Obstruction: no Daytime Symptoms: [place]: 10 Upon Awakening: unrefreshed Naps: no Involuntary Dozing: some Driving: denies Close calls related to sleepiness denies Accidents related to sleepiness denies Other Associates Sleep Symptoms: Parasomnias: Sleep Walking: no Dream Enactment: no Motor: RLS: no PLMS: no Family History: Family history of sleep disorders: father, 2 uncles, grandfather - all have sleep apnea ROS: CON: weight change: remains within 15#; toward higher weight currently ENT: nasal obstruction: no PUL: CALDERON: no CV: chest pain: no Palpitations: no LE edema: no GI: GERD: no : Nocturia: no MSK: Pain: no NEURO: sleep related headaches: no ALL: no PSY: Depression, anxiety: some - especially has some seasonal issues Past Medical History: Past Medical History Diagnosis Date ??? Anxiety disorder ??? Hypertension ??? Headache(784.0) ??? Back pain Medications: Outpatient Prescriptions Marked as Taking for the 07/26/14 encounter (Office Visit) with Sanjana Henry MD Medication Sig Dispense Refill ??? cyclobenzaprine (FLEXERIL) 10 mg Tablet Take 10 mg by mouth 3 times daily as needed for Muscle spasms. ??? amLODIPine-benazepril (LOTREL) 5-10 mg Capsule Take 1 capsule by mouth daily. ??? multivitamin (THERAGRAN) Tablet Take 1 tablet by mouth daily. ??? Rigby-3 Fatty Acids-Vitamin E 1,000 mg Capsule Take 1 capsule by mouth daily. ??? oxyCODONE-acetaminophen (PERCOCET) 5-325 mg Tablet Take 1 tablet by mouth daily as needed for Pain. 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 Alcohol: 2-3 beers a night Smoking: no Caffeine: 1-3 20oz mugs of coffee qd Other drugs: denies PE: BP 164/98 Pulse 73 Ht 180.3 cm (5' 11) Wt 117.028 kg (258 lb) BMI 36.00 kg/m2 General: alert, no distress Eyes: PERRL, conjunctiva clear ENT: oropharynx MP: 2-3 Crowded: clear Dentition: inatct Mandibular structure and position: normal NECK: Submental fat present: mild Supple, no LAD, no thyroid enlargement LUNGS: respirations even and unlabored, CTAB CV: RRR, no m/g/r, no c/c/e ABD: BS+, soft, NT, no HSM SKIN: warm and dry NEURO: gait and station normal, no tremor PSYCH: Alert and appropriate: yes Oriented to person, place and time: yes Affect: full range Mood: irritable Judgement and insight intact Assessment: Vincent Paredes is a 33 y.o. male with a history of loud snoring, observed apneas, sleep disruption and excessive daytime sleepiness, as well as a history of hypertension and strong family history of DWAYNE. The history and symptoms are suspicious for obstructive sleep apnea. The diagnosis of obstructive sleep apnea was reviewed in detail with the patient at this time. Potential consequences of untreated obstructive sleep apnea reviewed, including increased cardiovascular risk. Treatment options reviewed in detail. There is also likely a component of a learned, or conditioned, insomnia contributing to his sleep disruption. We discussed this diagnosis and management with behavioral interventions. Questions regarding diagnosis and management answered at this time. Recommendations: 1. Overnight PSG 2. Role of weight loss reviewed 3. Safe driving precautions reviewed with the patient. 4. Book recommendations provided for conditioned insomnia; also can consider referral for CBT-I. documented in this encounter Plan of Treatment Scheduled Referrals Name Type Priority Associated Diagnoses Orde r Schedule Referral to Sleep Disorders Center Outpatient Referral Routine Snoring Ordered: 07/26/2014 documented as of this encounter Visit Diagnoses Diagnosis Snoring Other dyspnea and respiratory abnormality Persistent disorder of initiating or maintaining sleep Hypersomnia, unspecified documented in this encounter Care Teams Brazer Crawler Torch Relationship Specialty Start Date End Date None None PCP - General 04/04/14 03/29/23 documented as of this encounter
--- OUTSIDE RECORDS SUMMARY | 2024-02-07 14:28 | XMS_ITS | Encounter Summary ---
[place] [address] Care Team Providers Care Medical Cost Consultant Name Role Phone Jeremie Gonzalez MD Primary Care Provider [phone] Encounter Details Date Type Department Care Team (Latest Contact Info) Description 03/30/2023 Travel Social History Tobacco Use Types Packs/Day Years Used Date Smoking Tobacco: Former Sex and Gender Information Value Date Recorded Sex Assigned at Not on file Gender Identity Not on file Sexual Orientation Not on file documented as of this encounter Plan of Treatment Not on file documented as of this encounter Visit Diagnoses Not on filedocumented in this encounter Care Teams Medical Cost Consultant Relationship Specialty Start Date End Date Jeremie Gonzalez MD [address] [place] [address] PCP - General Family Medicine 03/30/23 documented as of this encounter
--- OUTSIDE RECORDS SUMMARY | 2024-02-07 14:28 | XMS_ITS | Encounter Summary ---
Author Organization [facility] Address [facility] [place] [address] Care Team Providers Care Document Coordinator Name Role Phone Jeremie Gonzalez MD Primary Care Provider [phone] Reason for Referral * Physical Therapy (Routine) - Closed Specialty Diagnoses / Procedures Referred By Contac t Referred To Contact Physical Therapy Diagnoses Chronic bilateral low back pain without sciatica Bilateral sacroiliitis Spondylosis of lumbar region without myelopathy or radiculopathy Massimo Abernathy MD [facility] [address] PHYSICAL [place] [address] Physical Therapy, [facility] Pasc[facility] CAROLINE WHALEN,[facility] [address] [place] [address] Referral ID Status Reason Start Date Expiration Date V isits Requested Visits Authorized [id number] Closed Evaluate and Treat Non PCP 03/30/2023 09/26/2023 12 12 Reason for Visit * Consultation (Routine) - Closed Specialty Diagnoses / Procedures Referred By Contac t Referred To Contact [facility] Diagnoses Acute exacerbation of chronic low back pain Chronic low back pain/MRI 01/09/23 in e- Ced Wright MD [address] [place] [address] [facility] [place] [address] Referral ID Status Reason Start Date Expiration Date V isits Requested Visits Authorized [id number] Closed Consult, Test & Treat PCP Updated and/or Approved 01/16/2023 01/16/2024 1 1 Encounter Details Date Type Department Care Team (Late st Contact Info) Description 03/30/2023 12:45 PM EST Office Visit [facility] [place] [address] Massimo Abernathy MD [facility] [address] PHYSICAL [place] [address] Chronic bilateral low back pain without sciatica; Bilateral sacroiliitis; Spondylosis of lumbar region without myelopathy or radiculopathy Social History Tobacco Use Types Packs/Day Years Used Date Smoking Tobacco: Former Sex and Gender Information Value Date Recorded Sex Assigned at Not on file Gender Identity Not on file Sexual Orientation Not on file documented as of this encounter Progress Notes * Massimo Abernathy MD - 03/30/2023 12:45 PM EST Images from the original note were not included. Subjective: Vincent Paredes is a 42 y.o. male who presents for spine assessment and for Physical Medicine and Rehabilitation consultation, at the request of [facility] hospitalist, Ced Wright MD. The patient reports primary musculoskeletal symptoms of intermittent bilateral low lumbar pain and intermittent, widespread spasms that can involve the mid to low lumbar region and bilateral buttocks. He also reports intermittent stabbing pain in bilateral sacroiliac and parasacral regions. Additional symptoms include intermittent cramps involving the posterior knees and lateral legs withextension to the distal foot. The cramps vary in onset from [id number]. They are rarely bilateral. He likens the sensation to walking on a broken foot. At times, he can feel a pop in the low lumbar to sacral region after which his pain seems to reset and resolve or travels to the opposite side. Symptom chronicity: The patient sustained an unspecified lumbar disc herniation in 2010 while reconstructing a home for his in-laws. He recalls the acute onset of central low lumbar to lumbosacral pain. He has had chronic intermittent flares of low back pain ever since. They have increased in frequency and intensity over time. Pain is intermittent. There is no pain at present. Exacerbating factors: Forward flexion, twisting, lifting away from the plane of the body, transitional movements and prolonged sitting without back support. Alleviating factors: Lying on the floor and Flexeril. The patient denies contiguous lower extremity pain radiation, numbness, tingling, focal lower extremity weakness, bowel/bladder dysfunction or gait/balance impairment. Current treatment: None. The patient has had no primary care follow-up after recent hospital admission. He is not scheduled for an annual checkup until October 2023. I have reviewed the admission note of Cole Dumont MD, dated 01/08/2023. The patient reported a past history of disc herniations at L4-L5 and L5-S1 and intermittent flares of low back painand unilateral lower extremity pain radiation, varying from [id number] with each episode. The patient had been transported to the emergency department at [facility] where he was treated with Valium, ketorolac and fentanyl. The patient was then admitted to the hospitalist service for pain control. I have reviewed the telehealth consultation note of RADHA Moss of [facility], dated 01/09/2023. The patient had been admitted to [facility] for back pain and inability to walk. Lumbar MRI had shown no acute findings and no evidence of focal neural compression. He was reported to be neurologically intact and have full strength on his examination in the community. The patient had experienced no relief with a combination of Toradol, steroids, muscle relaxants, lidocaine and narcotics. Ms. Carter recommended PT treatment, TENS unit and pain management consultation with the acutepain service. Past musculoskeletal history: As above. The patient recalls sustaining a remote football injury. This led to low back pain and spasms, but they resolved over time. Past medical history includes hypertension, headache, obstructive sleep apnea, hyperlipidemia and obesity. Behavioral health history includes anxiety. 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 Additional somatic symptoms include weight gain due to inability to exercise. The patient states that he has been unable to hike or use a mountain bike due to chronic pain. I have independently reviewed the lumbar MRI of 01/09/2023. The study demonstrates normal alignment. 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 A small central protrusion is present at L3-L4. Mild facet degenerative changes are noted bilaterally at L3-L4 and L4-L5. There is no more than mild central stenosis at L3-L4 and L4-L5. There is no significant intervertebral foraminal narrowing at any level. Review of Systems: Pertinent review of musculoskeletal and neurological systems, as above. Spine Center Response Trends Patient-reported scores: No data to display No images are attached to the encounter. Objective: The patient is seated comfortably and in no apparent distress. Gait is normal. There is no difficulty performing bilateral heel or toe walking. Hips and knees areflexed in standing. Interval between ribs and pelvis is decreased. Lumbar lordosis is increased. Standing iliac crest palpation is elevated on the right. There is bilateral tenderness with the assessment. Standing flexion test is positive on the left. Active lumbar flexion is self-limited to 50 degrees and is associated with focal left sacroiliac pain. The patient reports pain and tightness in the midline low lumbar to lumbosacral areas at end range lumbar extension. Palpation: Tenderness is marked over the sacrum and bilateral sacroiliac joints. Additional tenderness is noted over left quadratus lumborum and throughout left central buttock and left hip bursae. The patient reports bilateral anterior iliac pain to pelvic compression. WARNER is positive on the left for contralateral sacroiliac pain. Left posterior thrust, bilateral Anu and sacral thrust are positive. There is marked tightness in bilateral hip flexors, iliotibial bands, rectus femoris and right hamstrings. There is additional tightness, of lesser severity, and left glutei. Motor: 5/5 throughout the lower extremities. Sensation: Intact to light touch throughout the lower extremities. Straight leg raising: Negative bilaterally in sitting and supine. Muscle stretch reflexes: 2+ bilaterally for quadriceps and unobtainable for Achilles tendon. Tone normal throughout the lower extremities. No ankle clonus. Assessment: Encounter Diagnoses Name Primary? Chronic bilateral low back pain without sciatica Bilateral sacroiliitis Spondylosis of lumbar region without myelopathy or radiculopathy The patient presents with chronic, intermittent low back pain flares that have increased in frequency and intensity over time. His latest flare developed in December 2022 while dressing. He notes lesspain and spasms over the past two weeks. The patient reports no contiguous lower extremity pain radiation, but he can experience pain and spasms in posterior knee, calf and foot. I question whether this may be myofascial in nature. The patient exhibits postural dysfunction/decompensation and sacroiliac mechanical dysfunction in the setting of marked soft tissue restrictions and marked sacral and bilateral sacroiliac tenderness. Pain localizes to the sacroiliac region with multiple provocative stress maneuvers through hips and pelvis. Neurological examination is normal and nonfocal. There are no radicular signs or symptoms to support the presence of a lumbar radicular process. I believe that the patient's pain is primarily mechanical in nature. The sacroiliac joints and associated ligamentous structures may be primary pain generators in this case. I have reviewed my findings and clinical impressions in detail with the patient. I recommend outpatient PT treatment. This will be pursued locally with [facility] PT, per patient preference. A prescription has been written for postural jehovah's witness, manual therapy to the pelvis and sacroiliac joints, via MET, to restore and maintain normal lumbopelvic rhythm, pelvic alignment and rotation, flexibility training with attention to iliopsoas, quadratus lumborum, bilateral hamstrings, iliotibial bands and rectus femoris, establishment of postural preference for symptom control and self-management of symptoms and progression to pelvic stabilization and core strengthening. Consideration will be given to diagnostic sacroiliac joint steroid injections, depending on the response to PT treatment and the further evolution of the patient's symptoms and examination. Plan: 1. Outpatient PT treatment. 2. Follow-up 8 weeks after the start of PT. The consultation request of Ced Wright MD is greatly appreciated. Total time spent on date of encounter, including clinical records and radiological review, [id number] evaluation and coordination of care = 63 minutes. Massimo Abernathy MD, MS documented in this encounter Plan of Treatment Scheduled Referrals Name Type Priority Associated Diagnoses Orde r Schedule Referral to Physical Therapy Outpatient Referral Routine Chronic bilateral low back pain without sciatica Bilateral sacroiliitis Spondylosis of lumbar region without myelopathy or radiculopathy Ordered: 03/30/2023 documented as of this encounter Visit Diagnoses Diagnosis Chronic bilateral low back pain without sciatica Bilateral sacroiliitis Spondylosis of lumbar region without myelopathy or radiculopathy Lumbosacral spondylosis without myelopathy documented in this encounter Care Teams Document Coordinator Relationship Specialty Start Date End Date Jeremie Gonzalez MD [address] [place] [address] PCP - General Family Medicine 03/30/23 documented as of this encounter
--- OUTSIDE RECORDS SUMMARY | 2024-02-07 14:28 | XMS_ITS | Encounter Summary ---
Author Organization [facility] Address [facility] [place] [address] Care Team Providers Care Equipment Technician Name Role Phone None Primary Care Provider Unavailabl e Encounter Details Date Type Department Care Team (Late st Contact Info) Description 01/09/2023 [place] [address] Klarissa Troncoso PA [facility] [place] [address] Social History Tobacco Use Types Packs/Day Years Used Date Smoking Tobacco: Former Sex and Gender Information Value Date Recorded Sex Assigned at Not on file Gender Identity Not on file Sexual Orientation Not on file documented as of this encounter Miscellaneous Notes * Telephone Encounter - Klarissa Troncoso PA - 01/09/2023 5:33 PM EDT [facility] Neurosurgery Telephone Consult Note Date: 01/09/23 Patient: Vincent Paredes : 1980 Please note: the information in this note was directly obtained via the calling provider. Facility: [facility] Patient status: floor Provider: Jessica Lane Called by OSH provider regarding above patient, 42 y.o. male w/ a PMHx of ruptured disc in 2010, admitted to [facility] for refractory back pain and inability to walk 2/2 to pain. MRI L spine completed with no acute findings, compression. Pt appears to have full strength and is neurologically intact for OSH providers. Pain has been refractory to toradol, steroids, flexeril, robaxin, lidocaine patches. OSH calling for pain reg recommendations Plan/Recs: - consider TENS unit, PT for pain modulation. -consult APS Thank you for the opportunity to participate in the care of this patient. RADHA [facility] Neurosurgery 01/09/2023 5:33 PM documented in this encounter Plan of Treatment Not on file documented as of this encounter Visit Diagnoses Not on filedocumented in this encounter Care Teams Equipment Technician Relationship Specialty Start Date End Date None None PCP - General 04/04/14 03/29/23 documented as of this encounter
--- OUTSIDE RECORDS SUMMARY | 2024-02-07 14:28 | XMS_ITS | Encounter Summary ---
Author Organization [facility] Address [facility] [place] [address] Care Team Providers Care Transit Department Clerk Name Role Phone None Primary Care Provider Unavailabl e Reason for Visit * Reason Onset Date Comments Other 09/08/2014 Encounter Details Date Type Department Care Team (Late st Contact Info) Description 09/08/2014 Telephone Sleep Center at [facility] [address] [place] [address] Sanjana Henry MD [facility] SLEEP [place] [address] Other Social History Tobacco Use Types Packs/Day Years Used Date Smoking Tobacco: Former Sex and Gender Information Value Date Recorded Sex Assigned at Not on file Gender Identity Not on file Sexual Orientation Not on file documented as of this encounter Miscellaneous Notes * Telephone Encounter - Sanjana Henry MD - 09/08/2014 4:01 PM EDT Spoke with patient - reviewed test results. He is amenable to returning for the CPAP. documented in this encounter Plan of Treatment Not on file documented as of this encounter Visit Diagnoses Not on filedocumented in this encounter Care Teams Transit Department Clerk Relationship Specialty Start Date End Date None None PCP - General 04/04/14 03/29/23 documented as of this encounter
--- OUTSIDE RECORDS SUMMARY | 2024-02-07 14:28 | XMS_ITS | Encounter Summary ---
Author Organization [facility] Address [facility] [place] [address] Care Team Providers Care School Cafeteria Cook Head Name Role Phone None Primary Care Provider Unavailabl e Encounter Details Date Type Department Care Team (Late st Contact Info) Description 09/05/2014 Orders Only Sleep Center at [facility] [address] [place] [address] Sanjana Henry MD [facility] [place] [address] Social History Tobacco Use Types Packs/Day Years Used Date Smoking Tobacco: Former Sex and Gender Information Value Date Recorded Sex Assigned at Not on file Gender Identity Not on file Sexual Orientation Not on file documented as of this encounter Progress Notes * Sanjana Henry MD - 09/05/2014 5:20 PM EDT Polysomnogram Order Form Room # Technologist Assignment: To be read by on PSG Patient Information Date of study: : 1980 Name: Vincent Paredes Height: 71in Weight: 249# 34 y.o. male Normal sleep hours: 12-6 Arrival Time: Physical/Mobility Limitations: No Cognitive Limitations: No Requires Male Tech: No Requires Female Tech: No Requires 1:1 Care: No Requires Parent/Caregiver: Bertha of Parent/Caregiver staying: Using Home Oxygen: No At home sleeps in: Bed PSG Indications: DWAYNE -- CPAP titration Other Medical Conditions: anxiety, insomnia, HTN PSG Orders Type of study: CPAP titration Additional data required:no Special instructions: no *Initiate CPAP/BPAP/oxygen per previously determined protocols unless otherwise specified. documented in this encounter Plan of Treatment Not on file documented as of this encounter Visit Diagnoses Not on filedocumented in this encounter Care Teams School Cafeteria Cook Head Relationship Specialty Start Date End Date None None PCP - General 04/04/14 03/29/23 documented as of this encounter
--- OUTSIDE RECORDS SUMMARY | 2024-02-07 14:28 | XMS_ITS | Encounter Summary ---
Author Organization [facility] Address [facility] [place] [address] Care Team Providers Care Director Of Marketing [employer] Performance Ads Name Role Phone None Primary Care Provider Unavailabl e Encounter Details Date Type Department Care Team (Late st Contact Info) Description 01/09/2023 4:10 PM EDT Ancillary Procedure Radiology Library [place] [facility] [place] [address] Carlos, Loco Hanson MD [facility] [place] [address] Social History Tobacco Use Types Packs/Day Years Used Date Smoking Tobacco: Former Sex and Gender Information Value Date Recorded Sex Assigned at Not on file Gender Identity Not on file Sexual Orientation Not on file documented as of this encounter Plan of Treatment Not on file documented as of this encounter Procedures Procedure Name Priority Date/Time Associated Diagnosis Comments FILM LIBRARY STORAGE ONLY MR SPINE Routine 01/09/2023 4:09 PM EDT documented in this encounter Results * Film Library- Storage Only MR Spine (01/09/2023 4:09 PM EDT) Narrative RAD - 01/09/2023 4:09 PM EDT This exam is auto-finalizing. It's purpose is for storage only. Loco SHIELDS FILM LIBRARY ORD ERABLES [place], [place] documented in this encounter Visit Diagnoses Not on filedocumented in this encounter Care Teams Director Of Marketing [employer] Performance Ads Relationship Specialty Start Date End Date None None PCP - General 04/04/14 03/29/23 documented as of this encounter
--- OUTSIDE RECORDS SUMMARY | 2024-02-07 14:28 | XMS_ITS | Clinical Summary ---
Author Organization [facility] Address [facility] [place] [address] Care Team Providers Care Blacksmith Assistant Name Role Phone Jeremie Gonzalez MD Primary Care Provider [phone] Allergies No known active allergies Medications Medication Sig Dispensed Refills Start Date End Date Status cyclobenzaprine (FLEXERIL) 10 mg Tablet Take 10 mg by mouth 3 times daily as needed for Muscle spasms. Active amLODIPine-benazepril (LOTREL) 5-10 mg Capsule Take 1 capsule by mouth daily. Active multivitamin (THERAGRAN) Tablet Take 1 tablet by mouth daily. Active Aurora-3 Fatty Acids-Vitamin E 1,000 mg Capsule Take 1 capsule by mouth daily. Active metoprolol succinate XL (Toprol-XL) 50 mg ER 24 hr tablet 50 mg. Active amLODIPine (Norvasc) 10 mg tablet Take 1 tablet by mouth Daily at Noon. 01/12/2023 Active atorvastatin (Lipitor) 20 mg tablet Take 20 mg by mouth every evening. 01/12/2023 Active Active Problems Problem Noted Date Diagnosed Date Anxiety disorder Hypertension Headache(784.0) Back pain DWAYNE (obstructive sleep apnea) Social History Tobacco Use Types Packs/Day Years Used Date Smoking Tobacco: Former Sex and Gender Information Value Date Recorded Sex Assigned at Not on file Gender Identity Not on file Sexual Orientation Not on file Last Filed Vital Signs Vital Sign Reading Time Taken Comments Blood Pressure 172/90 10/02/2014 8:00 PM EDT Pulse 59 10/02/2014 8:00 PM EDT Temperature - - Respiratory Rate - - Oxygen Saturation - - Inhaled Oxygen Concentration - - Weight 117.5 kg (259 lb) 10/02/2014 8:00 PM EDT Height 180.3 cm (5' 11) 10/02/2014 8:00 PM EDT Body Mass Index 36.12 10/02/2014 8:00 PM EDT Plan of Treatment Health Maintenance Due Date Last Done Comments HIV screen 09/03/1997 Hepatitis C Screening 09/03/1997 Hepatitis B vaccine (0-59 yrs) (1) 09/03/1998 Tetanus/Diphtheria/Pertussis Vaccines (1 - Tdap) 09/03 Covid-19 Vaccine (1 - 2023- season) 2023 Influenza (Flu) vaccine (1 o f 1 - Influenza standard series) 11/15/2023 Care Teams Blacksmith Assistant Relationship Specialty Start Date End Date Jeremie Gonzalez MD [address] [place], [place] [id number] PCP - General Family Medicine 03/30/23
--- OUTSIDE RECORDS SUMMARY | 2024-02-07 14:28 | XMS_ITS | Encounter Summary ---
Author Organization [facility] Address [facility] [place] [address] Care Team Providers Care Stockroom Inventory Clerk Name Role Phone None Primary Care Provider Unavailabl e Encounter Details Date Type Department Care Team (Late st Contact Info) Description 10/02/2014 8:00 PM EDT Procedure visit [address] [place] [address] Dolly Henry MD [facility] [place] [address] Obstructive sleep apnea (adult) (pediatric) Social History Tobacco Use Types Packs/Day Years [...] Mass Index 36.12 10/02/2014 8:00 PM EDT documented in this encounter Progress Notes * Dolly Henry MD - 10/19/2014 2:32 PM EDT Images from the original note were not included. REPORT OF POSITIVE PRESSURE TITRATION History Of Present Illness: Vincent Paredes is a 34 y.o. male who presents for a polysomnogram. Polysomnography: The patient's sleep was evaluated for one night at the [facility]. Sleep was monitored in accordance with recommended AASM guidelines. The recording also included oral/nasal airflow, chest and abdominal respiratory effort, nasal pressure, single channel EKG, intercostalEMG, bilateral tibialis EMG, and oxygen saturation (by pulse oximeter).C Type of Positive Pressure Utilized: CPAP Comment: - Sleep/EEG: Sleep efficiency: normal Sleep architecture: mildly elevated N1, otherwise normal REM Observed: yes; latency normal; REM percentage mildly reduced Supine position observed: yes - Respiratory: CPAP was titrated from a pressure of 6cm to 8cm. Obstructive events were significantly improved at the highest pressure evaluated, 8cm, although mild scattered hypopneas did persist, particularly in REM. Mask leak was controlled. Mean SaO2: 96% Minimum SaO2: 88% - EKG: Normal sinus rhythm. - EMG: Unremarkable Assessment: Vincent Paredes is a 34 y.o. male whose polysomnogram reveals significantly improved control of obstructive events with CPAP at 8cm (the highest pressure evaluated during this study). Mildscattered hypopneas did persist a this pressure, particularly in REM, thus he may benefit from a sli ghtly higher pressure empirically. Sleep efficiency normal with only mildly elevated N1. No motor disorder identified. Study results reviewed with Mr. Paredes. He felt that he felt better rested inthe morning following use of CPAP. No pressure intolerance. No difficulty tolerating mask interface. No nasal congestion or dry mouth. He is looking forward to starting CPAP. The need for positive pressure therapy compliance was discussed. Questions about positive pressure were answered. Expectations reviewed. Recommendations: 1. CPAP set at a pressure of 9 cm with a large Eson nasal mask. 2. Follow up appointment will be scheduled after initiating CPAP, although patient in instructed tocall sooner with problems or questions. [facility] CPAP REPORT Patient Name: Vincent Paredes Study Type: CPAP Sex: Male Study Date: 10/02/2014 Date of : 1980 Hospital #: [id number] Age: 34 Referring Physician: Height: 5'11 Sleep Specialist: DOLLY HENRY M.D. Weight: 259 Recording Tech: MARIAELENA CORTES B.M.I: 36.1 Scoring Tech: MARISEL KIGHTLINGER, RPSGT SCORING TECHNOLOGIST COMMENTS: ECG: NSR Ectopy: None noted Description of study: CPAP Therapeutic Polysomnography was performed utilizing frontal, central & occipital EEG, EOG, submentalis EMG, oronasal thermocouple, nasal pressure, ECG, thoracic and abdominal inductance plethysmography, right and left anterior tibialis EMG, snore sensor, and pulse oximetry according to AASM established guidelines. Therapeutic Analysis Sleep Architecture Therapeutic Start Time Lights Off: 22:30:02 Total Number of Stage Shifts: 77 Therapeutic End Time Lights On: 05:27:03 Number of Transitions to Stage 1: 34 Total Recording Time 417.0 minutes Total Number of Awakenings: 12 Total Sleep Time (TST): 351.0 minutes Number of REM Periods: 3 Sleep Efficiency: 84.2% REM Latency: 106.0 minutes Sleep Onset: 26.5 minutes REM Latency (minus Wake time): 103.5 minutes Stage Results Time (min.) % TST Latency (min.) Wake (after sleep onset): 39.5 - - N1: 57.0 16.2 0.0 N2: 227.0 64.7 8.5 N3: 6.0 1.7 76.0 REM: 61.0 17.4 106.0 Spontaneous Arousals* Total NREM REM Count: 55 52 3 Index (events/hr): 9.4 10.8 3.0 * (EEG Arousal activity not associated with Respiratory or PLM events). Respiratory Events Apneas Central Apnea Obstructive Apnea Mixed Apnea Count: 7 0 0 Index (events/hr.): 1.2 0.0 0.0 Mean Duration (sec.): 12 0 0 Longest Event (sec.): 15.1 0 0 REM Count: 0 0 0 NREM Count: 7 0 0 REM Index: 0.0 0.0 0.0 NREM Index 1.4 0.0 0.0 Supine Index 1.4 0.0 0.0 Non-supine Index 0.0 0.0 0.0 Hypopneas and RERAs Hypopnea 4% desat Hypopnea 3% or arousal RERA Count: 16 50 0 Index (events/hr.): 2.7 8.5 0.0 Mean Duration (sec.): 20.8 24.2 0 Longest Event (sec.): 30.0 54.3 0 REM Count: 1 11 0 NREM Count: 15 39 0 REM Index: 1.0 10.8 0.0 NREM Index: 3.1 8.1 0.0 Supine Count: 16 49 0 Non-Supine Count: 0 1 0 Supine Index: 3.1 9.5 0.0 Non-supine Index: 0.0 1.5 0.0 Apneas & Hypopneas (by Body-Position) Total Supine Non-Supine Count: 79 78 1 Index (events/hr): 13.5 15.0 1.5 * Results include all hypopneas and apneas. Apneas & Hypopneas (by Body-Position) Total Supine Non-Supine Count: 23 23 0 Index (events/hr): 3.9 4.4 0.0 *Results include only hypopneas with desaturations >= 4% and apneas. RDI (by Body-Position) Total Supine Non-Supine Count: 79 78 1 Index (events/hr): 13.5 15.0 1.5 * Results include all hypopneas, apneas and RERAs. Nicolás Avila Breathing (% of TST) 0.0 Body Position by Time Non-Supine Supine Sleep (in minutes) 40.0 311.0 REM (in minutes) 0.0 61.0 NREM (in minutes) 40.0 250.0 Periodic Limb Movements(by Sleep Stages) Total PLMs PLMs w/ Arousals Count Index Count Index Total Sleep: 39 6.7 0 0.0 REM: 0 0.0 0 0.0 NREM: 39 8.1 0 0.0 Wake (after Lights Off): 0 0.0 0 0.0 Oxygen Saturation NREM REM TST Mean SaO2%: 96 96 96 Min. SaO2%: 88 92 88 % Time of SaO2 in range Awake NREM REM Total Sleep 90 - 100%: 97 99 100 99 80 - 89%: 0 0 0 0 70 - 79%: 0 0 0 0 60 - 69%: 0 0 0 0 50 - 59%: 0 0 0 0 < 50%: 0 0 0 0 Total Time (min) SaO2 < 90%: 0.0 0.2 0.0 0.2 Total Time (min) SaO2 < 89%: 0.0 0.1 0.0 0.1 Total Time (min) SaO2 < 88%: 0.0 0.0 0.0 0.0 Heart Rate NREM REM TST Mean HR (bpm): 43 41 41 Min. HR (bpm): 40 44 40 Max. HR (bpm): 52 52 52 A. Titration Analysis Chart (Duration) Pressure Level (cm H2O) Time in Minutes TST REM NREM Supine Non-Supine REM Supine 4/4/0 11 0 11 11 0 0 6/6/0 18 0 18 18 0 0 7/7/0 67 0 67 29 38 0 8/8/0 253 61 192 251 2 61 B. Titration Analysis Chart (Oxygen Saturation) Pressure Level Mean SaO2% Min SaO2% 4/4/0 94 90 6/6/0 94 89 7/7/0 95 88 8/8/0 96 91 C. Titration Analysis Chart (Respiratory) Pressure Level Respiratory (number) Time in Minutes Respiratory (index) cm H2O Central Apneas Obstructive Apneas Mixed Apneas Hypopnea (4%) Hypopneas (3% or Arousal) RERA AHI* NREM AHI REM AHI RDI Supine AHI* NonSupine AHI 4/4/0 1 0 0 4 16 0 86.0 86.0 0.0 86.0 86.0 0.0 6/6/0 6 0 0 6 14 0 64.5 64.5 0.0 64.5 64.5 0.0 7/7/0 0 0 0 3 11 0 9.8 9.8 0.0 9.8 20.6 1.6 8/8/0 0 0 0 3 32 0 7.3 5.3 13.8 7.3 7.4 0.0 *Includes all hypopneas and apneas Includes all hypopneas, apneas and RERAs CPAP TREATMENT REPORT CPAP/Bilevel PLM Body Position documented in this encounter Plan of Treatment Not on file documented as of this encounter Visit Diagnoses Diagnosis Obstructive sleep apnea (adult) (pediatric) documented in this encounter Care Teams Stockroom Inventory Clerk Relationship Specialty Start Date End Date None None PCP - General 04/04/14 03/29/23 documented as of this encounter
--- OUTSIDE RECORDS SUMMARY | 2024-02-07 14:28 | XMS_ITS | Encounter Summary ---
Author Organization [place] [address] Care Team Providers Care [facility] Products Assembler Name Role Phone None Primary Care Provider Unavailabl e Encounter Details Date Type Department Care Team (Late st Contact Info) Description 09/26/2015 11:30 AM EDT Office Visit [facility] [address] [place] [phone] Sanjana Henry MD [facility] [place] [address] DWAYNE (obstructive sleep apnea) Social History Tobacco Use Types Packs/Day Years Used Date Smoking Tobacco: Former Sex and Gender Information Value Date Recorded Sex Assigned at Not on file Gender Identity Not on file Sexual Orientation Not on file documented as of this encounter Progress Notes * Sanjana Henry MD - 09/26/2015 11:30 AM EDT Sleep Medicine Follow-Up Note HPI: Vincent Paredes is a 35 y.o. male seen for follow-up of obstructive sleep apnea. The patient was diagnosed with with moderate DWAYNE in August 2014 CPAP was initiated at 9cm. He has notbeen seen for follow up since initiating CPAP. Reports that he is using CPAP. He reports that he has a bad habit of falling asleep on the couch and does not put CPAP on. He also does not bring with him when he is traveling. Able to use PAP: yes Mask type: standard nasal mask - has not replaced Difficulty tolerating mask interface: minimal Problem: occasional leak Pressure intolerance: no Dry mouth: no - better than before started CPAP Difficulty breathing through nose: no Symptom Improvement?: Nocturnal sleep quality improved: yes - feels like sleep is better; decreased awakenings, snoring resolved Daytime symptoms improved: yes - feels more rested; more refreshed and less tired Involuntary Dozing: occ later in the evening watching TV otherwise resolved Driving: denies ROS: CON: weight change: has gained about 10# since study ENT: nasal obstruction: no : nocturia: no PSYCH: depression/anxiety symptoms: stable Past Medical History: Patient Active Problem List Diagnosis Code ??? Anxiety disorder F41.9 ??? Hypertension I10 ??? Headache(784.0) R51 ??? Back pain M54.9 ??? DWAYNE (obstructive sleep apnea) G47.33 Medications: Current Outpatient Prescriptions on File Prior to Visit Medication Sig Dispense Refill ??? cyclobenzaprine (FLEXERIL) 10 mg Tablet Take 10 mg by mouth 3 times daily as needed for Muscle spasms. ??? amLODIPine-benazepril (LOTREL) 5-10 mg Capsule Take 1 capsule by mouth daily. ??? multivitamin (THERAGRAN) Tablet Take 1 tablet by mouth daily. ??? Norvell-3 Fatty Acids-Vitamin E 1,000 mg Capsule Take 1 capsule by mouth daily. ??? oxyCODONE-acetaminophen (PERCOCET) 5-325 mg Tablet Take 1 tablet by mouth daily as needed for Pain. No current facility-administered medications on file prior to visit. PE: General: pleasant 35 y.o. male, no distress PAP compliance card reviewed: Not available at this time Assessment: Vincent Paredes is a 35 y.o. male seen in follow-up for obstructive sleep apnea. He reports regular CPAP use with good tolerance. Mr. Paredes reports significantly improved control of both nocturnaland daytime symptoms. He is overall quite pleased with the results of the CPAP. He has not replacedequipment and it was recommended that he do so. He also did not have a compliance download and we discussed sending that in for review. He does sometimes fall asleep in front of the TV without the CPAP on - discussed trying to avoid this. Overall however, he feels that the CPAP has been quite beneficial and he tolerates it well. Time spent face to face: 15min Time spent devoted to counseling and discussion: 10min Recommendations: 1. Cont CPAP at current pressure 2. Asked patient to send in download to review 3. Reviewed routine mask change and equipment maintenance 4. Advised to try to go to bed before falling asleep with PAP in place 5. F/U 1 yr; call sooner for problems/questions Patient voices understanding and acceptance of this advice and will call back if any further questions or concerns. documented in this encounter Plan of Treatment Not on file documented as of this encounter Visit Diagnoses Diagnosis DWAYNE (obstructive sleep apnea) Obstructive sleep apnea (adult) (pediatric) documented in this encounter Care Teams [facility] Products Assembler Relationship Specialty Start Date End Date None None PCP - General 04/04/14 03/29/23 documented as of this encounter
--- OUTSIDE RECORDS SUMMARY | 2024-02-07 14:28 | XMS_ITS | Encounter Summary ---
Author Organization [facility] Address [facility] [place] [address] Care Team Providers Care Director Of Strategic Partnerships Name Role Phone None Primary Care Provider Unavailabl e Reason for Referral * Consultation (Routine) - Closed Specialty Diagnoses / Procedures Referred By Marissa t Referred To Contact Sleep Center Diagnoses Obstructive sleep apnea (adult) (pediatric) Dolly Henry MD [facility] [place] [address] bar Sleep Disorders [address] [place] [id number] Referral ID Status Reason Start Date Expiration Date V isits Requested Visits Authorized [id number] Closed Test Only 09/05/2014 09/05/2015 3 3 Encounter Details Date Type Department Care Team (Late st Contact Info) Description 08/17/2014 8:00 PM EDT Procedure visit [facility] [address] [place] [address] Dolly Henry MD [facility] [place] [address] Obstructive sleep apnea (adult) (pediatric) Social History Tobacco Use Types Packs/Day Years Used Date Smoking Tobacco: Former Sex and Gender Information Value Date Recorded Sex Assigned at Not on file Gender Identity Not on file Sexual Orientation Not on file documented as of this encounter Last Filed Vital Signs Vital Sign Reading Time Taken Comments Blood Pressure 140/82 08/17/2014 8:00 PM EDT Pulse 64 08/17/2014 8:00 PM EDT Temperature - - Respiratory Rate - - Oxygen Saturation - - Inhaled Oxygen Concentration - - Weight 112.9 kg (249 lb) 08/17/2014 8:00 PM EDT Height 180.3 cm (5' 11) 08/17/2014 8:00 PM EDT Body Mass Index 34.73 08/17/2014 8:00 PM EDT documented in this encounter Progress Notes * Dolly Henry MD - 09/05/2014 5:15 PM EDT Images from the original note were not included. REPORT OF DIAGNOTIC POLYSOMNOGRAM History Of Present Illness: Vincent Paredes is [...] tibialis EMG, and oxygen saturation (by pulse oximeter). Comment: - Sleep/EEG: Sleep efficiency: normal Sleep architecture: normal REM observed: yes; latency prolonged; REM percentage normal Supine sleep observed: yes - Respiratory: Snoring: mild Obstructive respiratory events observed: yes AHI: 32 CMS AHI: 9 (includes apneas + only hypopneas associated with 4% or greater desaturation) Mean SaO2: 95% Minimum SaO2: 87% - EKG: Normal sinus rhythm. - EMG: Unremarkable. Assessment: .Vincent Paredes is a 34 y.o. male whose polysomnogram reveals obstructive sleep apnea, overall in the moderate range. Sleep efficiency and architecture normal and no motor disorder identified. Phone message left for patient to review study results. Recommendations: 1. CPAP trial [facility] DIAGNOSTIC REPORT Patient Name: Vincent Paredes Study Type: PSG Sex: Male Study Date: 08/17/2014 Date of : 1980 Hospital #: [id number] Age: 33 Referring Physician: Height: 5'11 Sleep Specialist: DOLLY HENRY M.D. Weight: 249 Recording Tech: MARIAELENA GRAY B.M.I: 34.7 Scoring Tech: MARIAELENA RICKS SCORING TECHNOLOGIST COMMENTS: ECG: NSR Ectopy: ____NONE NOTED Description of study: Diagnostic Polysomnography was performed utilizing Frontal, central & occipital EEG, EOG, submentalis EMG, oronasal thermocouple, nasal pressure, ECG, thoracic and abdominalinductance plethysmography, right and left anterior tibialis EMG, snore sensor, and pulse oximetry according to AASM established guidelines. Sleep Architecture Diagnostic Start Time Lights Off: 22:59:17 Total Number of Stage Shifts: 85 Diagnostic End Time Lights On: 06:08:48 Number of Transitions to Stage 1: 24 Total Recording Time (TRT): 429.5 Total Number of Awakenings: 19 Total Sleep Time (TST): 388.5 minutes REM Periods: 2 Sleep Efficiency: 90.5 % REM Latency: 218.5 minutes REM Latency (minus Wake time): 204.0 minutes Sleep Onset: 19.5 minutes Stage Results Time (min.) % TST Latency (min.) Wake (after sleep onset): 21.5 - - N1: 23.5 6.0 0.0 N2: 243.5 62.7 11.0 N3: 32.0 8.2 25.0 REM: 89.5 23.0 218.5 Spontaneous Arousals* Total NREM REM Count: 90 75 15 Index (events/hr): 13.9 15.1 10.1 * (EEG Arousal activity not associated with Respiratory or PLM events). Respiratory Events Apneas Central Apnea Obstructive Apnea Mixed Apnea Count: 6 30 0 Index (events/hr.): 0.9 4.6 0.0 Mean Duration (sec.): 16 22 0 Longest Event (sec.): 23.7 51.1 0 REM Count: 3 26 0 NREM Count: 3 4 0 REM Index: 2.0 17.4 0.0 NREM Index 0.6 0.8 0.0 Supine Index 0.9 4.6 0.0 Non-supine Index 0.0 0.0 0.0 Hypopneas and RERAs Hypopnea 4% desat Hypopnea 3% or arousal RERA Count: 21 151 0 Index (events/hr.): 3.2 23.3 0.0 Mean Duration (sec.): 21.4 22.9 0 Longest Event (sec.): 45.2 58.9 0 REM Count: 13 46 0 NREM Count: 8 105 0 REM Index: 8.7 30.8 0.0 NREM Index: 1.6 21.1 0.0 Supine Count: 21 151 0.0 Non-Supine Count: 0 0 - Supine Index: 3.2 23.3 0.0 Non-supine Index: - - - Apneas & Hypopneas (by Body-Position) Total Supine Non-Supine Count: 208 208 0 Index (events/hr): 32.1 32.1 0.0 * Results include all hypopneas and apneas. Apneas & Hypopneas (by Body-Position) Total Supine Non-Supine Count: 57 57 0 Index (events/hr): 8.8 8.8 0 * Results include only hypopneas with desaturations >= 4% and apneas. RDI (by Body-Position) Total Supine Non-Supine Count: 208 208 0 Index (events/hr): 32.1 32.1 - * Results include all hypopneas, apneas and RERAs. Nicolás Avila Breathing (% of TST) 0.0 Body Position by Time Non-Supine Supine Sleep (in minutes) 0.0 388.5 REM (in minutes) 0.0 89.5 NREM (in minutes) 0.0 299.0 Periodic Limb Movements(by Sleep Stages) Total PLMs PLMs w/ Arousals Count Index Count Index Total Sleep: 77 11.9 1 0.2 REM: 5 3.4 0 0.0 NREM: 72 14.4 1 0.2 Wake (after Lights Off): 0 0.0 0 0.0 Oxygen Saturation NREM REM TST Mean SaO2%: 95 96 95 Min. SaO2%: 87 88 87 % Time of SaO2 in range Awake NREM REM Total Sleep 90 - 100%: 99 99 99 99 80 - 89%: 0 0 0 0 70 - 79%: 0 0 0 0 60 - 69%: 0 0 0 0 50 - 59%: 0 0 0 0 < 50%: 0 0 0 0 Total duration with SaO2 < 90%: 0.1 0.2 0.3 0.6 Total duration with SaO2 < 89%: 0.1 0.1 0.1 0.3 Total duration with SaO2 < 88%: 0.1 0.1 0.0 0.1 Oxygen Desaturation Index (4%) 5.1 Heart Rate NREM REM TST Mean HR (bpm): 58 53 57 Min. HR (bpm): 44 44 44 Max. HR (bpm): 73 72 73 PLM Body Position documented in this encounter Plan of Treatment Scheduled Referrals Name Type Priority Associated Diagnoses Orde r Schedule Referral to Sleep Disorders Center Outpatient Referral Routine Obstructive sleep apnea (adult) (pediatric) Ordered: 09/05/2014 documented as of this encounter Visit Diagnoses Diagnosis Obstructive sleep apnea (adult) (pediatric) documented in this encounter Care Teams Director Of Strategic Partnerships Relationship Specialty Start Date End Date None None PCP - General 04/04/14 03/29/23 documented as of this encounter
[2024-02-07 14:30] LABS: Calcium 9.7 mg/dL (8.5-10.1)
--- NOTE | 2024-02-07 14:40 | DI.VRAD_ITS ---
PROCEDURE INFORMATION: Exam: CT Abdomen And Pelvis Without Contrast Exam date and time: 02/07/2024 1:55 PM Age: 43 years old Clinical indication: Other: Acute onset lower back pain bilterally TECHNIQUE: Imaging protocol: Computed tomography of the abdomen and pelvis without contrast. COMPARISON: CT LUMBAR SPINE RECONS 02/07/2024 1:55 PM FINDINGS: Liver: Normal. No mass. Gallbladder and biliary ducts: The gallbladder is unremarkable Pancreas: Normal. No ductal dilation. Spleen: Normal. No splenomegaly. Adrenal glands: Normal. No mass. Kidneys and ureters: There is no evidence of renal or ureteral calcifications. Stomach and bowel: Unremarkable. No obstruction. No mucosal thickening. Appendix: Normal appendix Intraperitoneal space: Unremarkable. No free air. No significant fluid collection. Vasculature: Unremarkable. No abdominal aortic aneurysm. Lymph nodes: Unremarkable. No enlarged lymph nodes. Urinary bladder: Unremarkable as visualized. Reproductive: Unremarkable as visualized. Bones/joints: Unremarkable. No acute fracture. Soft tissues: Unremarkable. IMPRESSION: No acute process Dictated and Authenticated by: Aleah Polk MD. Ordering:KELLEY Carbajal MD
--- NOTE | 2024-02-07 14:52 | DI.VRAD_ITS ---
PROCEDURE INFORMATION: Exam: CT Lumbar Spine Without Contrast Exam date and time: 02/07/2024 1:55 PM Age: 43 years old Clinical indication: Other: Lumbar back pain, lumbar CT; Additional info: Lumbar back pain, lumbar CT recons TECHNIQUE: Imaging protocol: Computed tomography of the lumbar spine without contrast. Radiation optimization: All CT scans at this facility use at least one of these dose optimization techniques: automated exposure control; mA and/or kV adjustment per patient size (includes targeted exams where dose is matched to clinical indication); or iterative reconstruction. COMPARISON: CT LUMBAR SPINE WO 08/26/2023 8:47 PM FINDINGS: Bones/joints: Broad-based disc bulge, facet hypertrophy, and ligament hypertrophy at L3/L4 and L4/L5 consistent with spinal stenosis. . Mild broad-based disc bulge at L5/S1 on the left may represent mild degenerative disc disease (series 6, image 115). This may cause neural foraminal narrowing on the left. Soft tissues: Unremarkable. IMPRESSION: 1. Broad-based disc bulge, facet hypertrophy, and ligament hypertrophy at L3/L4 and L4/L5 consistent with spinal stenosis. . 2. Mild broad-based disc bulge at L5/S1 on the left may represent mild degenerative disc disease (series 6, image 115). This may cause neural foraminal narrowing on the left. Dictated and Authenticated by: Aleah Polk MD. Ordering:KELLEY Carbajal MD
== END 2024-02-07 15:36 | disposition home or self-care (01) ==
PROVIDERS: Emergency Provider Emergency Medicine; PCP Family Medicine
DX: M51.26 Other intervertebral disc displacement, lumbar region (principal); M48.061 Spinal stenosis, lumbar region without neurogenic claudication; I10 Essential (primary) hypertension; E78.5 Hyperlipidemia, unspecified
CPT/HCPCS: 80053; 83690; 96374; 96375; 96376; 99284; 74176; 83735; 84443; 85025; J1171; J1885

== ENCOUNTER 2025-03-07 08:32 | Outpatient (REF) | payer BC, SELFPAY ==
[2025-03-07 15:44] LABS: HCT 43.6 % (40.0-50.0); HGB 14.8 g/dL (13.5-17.5); MCH 31.3 pg (27.0-33.0); MCHC 33.9 % (32.0-36.0); MCV 92 fL (80-95); MPV 10.3 fL (8.0-11.0); Platelet Count 246 10^3/uL (130-400); RBC 4.73 10^6/uL (4.36-5.78); RDW 12.8 % (11.8-14.1); RDW-SD 43.4 fL; WBC 6.74 10^3/uL (4.4-10.8)
[2025-03-07 15:58] LABS: TSH (W/Ref FT4) 3.05 uIU/mL (0.55-4.78)
[2025-03-07 15:59] LABS: ALT 37 U/L (10-49); AST 29 U/L (<34); Albumin 4.5 g/dL (3.2-5.0); Alkaline Phosphatase 64 U/L (46-116); Anion Gap 9.3 mmol/L (3-11); BUN 11 mg/dL (9-23); Bilirubin, Total 0.3 mg/dL (0.2-1.2); CO2 26.7 mmol/L (20.0-31.0); Calcium 9.6 mg/dL (8.3-10.6); Chloride 108 mmol/L (98-107); Cholesterol 198 mg/dL (<200); Glucose 99 mg/dL (74-106); HDL Cholesterol 56 mg/dL (>or=40); Potassium 4.5 mmol/L (3.5-5.1); Sodium 144 mmol/L (136-145); Total Protein 7.3 g/dL (5.7-8.2)
[2025-03-14 21:27] LABS: Testosterone, Free 66.3 pg/mL (35.0-155.0)
== END 2025-03-07 08:33 | disposition home or self-care (01) ==
LOC: NCHCN 08:32
PROVIDERS: PCP Family Medicine; Visit Provider Family Medicine
DX: R53.82 Chronic fatigue, unspecified (principal); Z68.41 Body mass index [BMI] 40.0-44.9, adult; I10 Essential (primary) hypertension; Z00.00 Encounter for general adult medical examination without abnormal findings; E78.5 Hyperlipidemia, unspecified
CPT/HCPCS: 80053; 80061; 84402; 84403; 85027; 84443